=== PATIENT | male | born 1965 | race Caucasian/White ===

== ENCOUNTER 2017-11-07 20:46 | Emergency (ER) | payer OTHER ==
[~2017-11-07] VITALS: Ht 167.6 cm; Wt 74.8 kg
--- NOTE | 2017-11-07 20:50 | NUR ---
"FOUND IN THE ALLEY; ADMITS TO TAKING METH". REFUSES TO ANSWER QUESTIONS, NO S/S OF TRAUMA NOTED, NAD NOTED, VSS, RESP EVEN AND UNLABORED, PT WAS PUT ON MONITOR, WAITING FOR MD WILLIS.
[2017-11-07 22:23] LABS: BASOPHILS # (AUTO) 0.1 /CMM (0.0-0.2); BASOPHILS % (AUTO) 0.7 % (0.0-2.0); EOSINOPHILS % (AUTO) 1.7 % (0.0-6.0); HEMATOCRIT 36 % (39-51); HEMOGLOBIN 12.1 g/dL (13.5-17.5); LYMPHOCYTES # (AUTO) 0.9 /CMM (0.8-4.8); LYMPHOCYTES % (AUTO) 11.2 % (20.0-44.0); MEAN CORPUSCULAR HGB CONC 34 g/dl (31.0-36.0); MEAN CORPUSCULAR VOLUME 79 fL (80-96); MONOCYTES # (AUTO) 0.6 /CMM (0.1-1.30); MONOCYTES % (AUTO) 7.5 % (2.0-12.0); NEUTROPHILS # (AUTO) 6.5 /CMM (1.8-8.9); NEUTROPHILS % (AUTO) 78.9 % (43.0-81.0); PLATELET COUNT (AUTO) 172 /CMM (150-450); RDW COEFFICIENT OF VARIATION 18.3 (11.5-15.0); RED BLOOD CELL COUNT(AUTO) 4.58 MIL/uL (4.5-6.0); WHITE BLOOD COUNT (AUTO) 8.3 K/uL (4.3-11.0)
[2017-11-07] MEDS ORDERED: LIDOCAINE 2% JEL UROJET 10 ML MM ONE (22:26)
[2017-11-07 22:37] LABS: CALCIUM, SERUM 8.5 mg/dL (8.5-10.1); CARBON DIOXIDE 28 mmol/L (21-32); CHLORIDE 103 mmol/L (98-107); CREATININE 0.7 mg/dL (0.6-1.3); GLUCOSE 301 mg/dL (74-106); POTASSIUM 3.9 mmol/L (3.5-5.1); SODIUM SERUM 136 mmol/L (136-145); UREA NITROGEN, BLOOD 22 mg/dL (7-18)
[2017-11-07 22:42] LABS: ALANINE AMINOTRANSFERASE 38 U/L (12-78); ALBUMIN 3.2 g/dL (3.4-5.0); ALCOHOL, BLOOD < 3 mg/dL (0-0); ALKALINE PHOSPHATASE 118 U/L (46-116); ASPARTATE AMINOTRANSFERASE 25 U/L (15-37); BILIRUBIN,DIRECT 0.2 mg/dL (0.0-0.2); BILIRUBIN,TOTAL 0.6 mg/dL (0.2-1.0); TOTAL PROTEIN, SERUM 7.5 g/dL (6.4-8.2)
[2017-11-07 22:43] LABS: ACETAMINOPHEN 0 ug/ml (10-30); SALICYLATE < 0.2 mg/dL (2.8-20.0)
[2017-11-07 23:07] LABS: APPEARANCE,URINE SL CLOUDY (CLEAR); BILIRUBIN,URINE NEGATIVE (NEGATIVE); BLOOD, URINE NEGATIVE Ery/uL (NEGATIVE); COLOR,URINE YELLOW (YELLOW); KETONES,URINE TRACE (NEGATIVE); LEUKOCYTE ESTERASE ,URINE NEGATIVE (NEGATIVE); NITRITE, URINE NEGATIVE (NEGATIVE); PROTEIN,URINE 2+ mg/dl (NEGATIVE); UGLUCOSE 2+ mg/dL (NEGATIVE)
[2017-11-07 23:13] LABS: WBC,URINE 21-50 /HPF (0-3)
[2017-11-07 23:14] LABS: BACTERIA,URINE Few /HPF (None Seen); MUCUS,URINE Few /LPF (None Seen); RBC,URINE 0-2 /HPF (0-2); SQUAMOUS EPITHELIAL CELL,UR Rare /HPF (None Seen)
--- NOTE | 2017-11-07 23:32 | NUR ---
REPORT REC'D FROM ДМИТРИЙ LOPEZ FOR KRISTA.
--- NOTE | 2017-11-07 23:34 | NUR ---
[employer] IS AT THE BEDSIDE. PT APPEARS TO BE RESTING COMFORTABLY. PT IS IN BILATERAL HANDCUFFS AND IS ON THE MONITOR AND CONTINUOUS PULSE OX.
[2017-11-08 00:32] VITALS: BP 132/74
[2018-02-01] MEDS ORDERED: METF-440 PO (09:51)
== END 2017-11-08 00:33 ==
LOC: ER 20:48
DX: Z13.89 Encounter for screening for other disorder (principal); F19.10 Other psychoactive substance abuse, uncomplicated; R46.89 Other symptoms and signs involving appearance and behavior; E11.9 Type 2 diabetes mellitus without complications; R82.79 Other abnormal findings on microbiological examination of urine
CPT/HCPCS: 36415; 80048-TC; 80076-TC; 80305; 81000-TC; 85025-TC; 87086-TC; A4606; G0480; J3490; Z7610

== ENCOUNTER 2018-01-31 13:20 | Emergency (ER) | payer MEDICAID, OTHER ==
[~2018-01-31] VITALS: Ht 167.6 cm; Wt 72.1 kg
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
[2018-01-31] MEDS ORDERED: TDAP [DIPH/PERTUSSIS/TET] 0.5 ML VIAL IM ONE (13:37)
[2018-01-31] MEDS: TDAP [DIPH/PERTUSSIS/TET] 0.5 ML VIAL IM ONE (13:40)
[2018-01-31 13:48] LABS: BASOPHILS % (AUTO) 0.7 % (0.0-2.0); EOSINOPHILS % (AUTO) 2.9 % (0.0-6.0); HEMATOCRIT 37 % (39-51); HEMOGLOBIN 11.7 g/dL (13.5-17.5); LYMPHOCYTES # (AUTO) 1.3 /CMM (0.8-4.8); LYMPHOCYTES % (AUTO) 20.6 % (20.0-44.0); MEAN CORPUSCULAR HEMOGLOBIN 25 PG (26.0-33.0); MEAN CORPUSCULAR HGB CONC 32 g/dl (31.0-36.0); MEAN CORPUSCULAR VOLUME 78 fL (80-96); MONOCYTES # (AUTO) 0.5 /CMM (0.1-1.30); MONOCYTES % (AUTO) 7.7 % (2.0-12.0); NEUTROPHILS # (AUTO) 4.4 /CMM (1.8-8.9); NEUTROPHILS % (AUTO) 68.1 % (43.0-81.0); PLATELET COUNT (AUTO) 175 /CMM (150-450); RDW COEFFICIENT OF VARIATION 15.2 (11.5-15.0); RED BLOOD CELL COUNT(AUTO) 4.69 MIL/uL (4.5-6.0); WHITE BLOOD COUNT (AUTO) 6.4 K/uL (4.3-11.0)
--- NOTE | 2018-01-31 13:51 | NUR ---
pt to ctscan
[2018-01-31 13:57] LABS: CALCIUM, SERUM 8.8 mg/dL (8.5-10.1); POTASSIUM 3.8 mmol/L (3.5-5.1)
[2018-01-31] MEDS ORDERED: LIDOCAINE 1%-EPI 1:100,000 20 ML VIAL ONE ×2 (15:30→15:32)
[2018-01-31] MEDS: LIDOCAINE 1%-EPI 1:100,000 50 ML VIAL IJ ONE (15:34)
--- NOTE | 2018-01-31 15:49 | NUR ---
pt refused to continue with laceration care, tried to help clean up, but still refused.
[2018-01-31 16:21] VITALS: BP 123/78
--- NOTE | 2018-01-31 16:21 | NUR ---
Patient discharged to home in stable condition. Written and verbal after care instructions given. Patient verbalizes understanding of instruction.
[2018-02-01] MEDS ORDERED: LISI10TA5 PO (09:51)
[2018-02-01] MEDS ORDERED: METF500T6 PO (09:51)
[2018-02-01] MEDS ORDERED: OMEP20TA5 PO (09:51)
[2018-02-01] MEDS ORDERED: TRAM50TA2 PO (09:51)
[2018-02-01] MEDS ORDERED: GLIP5TAB13 PO (09:51)
[2018-02-01] MEDS ORDERED: PROP10TA10 PO (09:51)
== END 2018-01-31 16:22 | disposition home or self-care (01) ==
LOC: ER 13:23
DX: S06.0X9A Concussion with loss of consciousness of unspecified duration, initial encounter (principal); S01.01XA Laceration without foreign body of scalp, initial encounter; Z23 Encounter for immunization; Z60.2 Problems related to living alone; E11.9 Type 2 diabetes mellitus without complications; Y04.8XXA Assault by other bodily force, initial encounter; Y93.39 Activity, other involving climbing, rappelling and jumping off; Y92.410 Unspecified street and highway as the place of occurrence of the external cause; Y99.8 Other external cause status
CPT/HCPCS: 12001; 36415; 70450; 72125; 80048; 85025; 85730; 90471; 90715; 99285; A4606; A6402; A6403; J3490; L0172; Z7610

== ENCOUNTER 2018-01-31 18:43 | Inpatient (IN) | payer MEDICAID ==
[~2018-01-31] VITALS: Ht 180.3 cm; Wt 73.5 kg
[2018-01-31 19:11] LABS: BASOPHILS # (AUTO) 0.1 /CMM (0.0-0.2); HEMATOCRIT 36 % (39-51); HEMOGLOBIN 11.4 g/dL (13.5-17.5); LYMPHOCYTES # (AUTO) 1.2 /CMM (0.8-4.8); LYMPHOCYTES % (AUTO) 19.3 % (20.0-44.0); MEAN CORPUSCULAR HEMOGLOBIN 24 PG (26.0-33.0); MEAN CORPUSCULAR HGB CONC 31 g/dl (31.0-36.0); MEAN CORPUSCULAR VOLUME 77 fL (80-96); MONOCYTES # (AUTO) 0.5 /CMM (0.1-1.30); MONOCYTES % (AUTO) 8.1 % (2.0-12.0); NEUTROPHILS # (AUTO) 4.5 /CMM (1.8-8.9); NEUTROPHILS % (AUTO) 69.6 % (43.0-81.0); PLATELET COUNT (AUTO) 147 /CMM (150-450); RDW COEFFICIENT OF VARIATION 15.3 (11.5-15.0); WHITE BLOOD COUNT (AUTO) 6.4 K/uL (4.3-11.0)
[2018-01-31 19:17] LABS: CALCIUM, SERUM 8.4 mg/dL (8.5-10.1); CARBON DIOXIDE 29 mmol/L (21-32); CHLORIDE 108 mmol/L (98-107); CREATININE 0.9 mg/dL (0.6-1.3); GLUCOSE 141 mg/dL (74-106); POTASSIUM 3.9 mmol/L (3.5-5.1); SODIUM SERUM 140 mmol/L (136-145); UREA NITROGEN, BLOOD 15 mg/dL (7-18)
[2018-01-31 19:22] LABS: ALANINE AMINOTRANSFERASE 33 U/L (12-78); ALBUMIN 3.4 g/dL (3.4-5.0); ALKALINE PHOSPHATASE 109 U/L (46-116); ASPARTATE AMINOTRANSFERASE 27 U/L (15-37); BILIRUBIN,DIRECT 0.2 mg/dL (0.0-0.2); BILIRUBIN,TOTAL 0.8 mg/dL (0.2-1.0); TOTAL PROTEIN, SERUM 7.7 g/dL (6.4-8.2)
[2018-01-31 19:23] LABS: ACETAMINOPHEN < 2 ug/ml (10-30); ALCOHOL, BLOOD < 3 mg/dL (0-0); SALICYLATE < 2.8 mg/dL (2.8-20.0)
--- NOTE | 2018-01-31 21:29 | NUR ---
ASSUMED CARE OF PT AT THIS TIME. PT RESTING IN BED WITH NO S/S OF DISTRESS NOTED. PT GCS OF 10. PT MUMBLES AND MOVES HEAD WHEN ASKED QUESTIONS.WILL CONTINUE TO MONITOR PT.
[2018-01-31 21:55] VITALS: BP 124/61
--- NOTE | 2018-01-31 22:19 | NUR ---
REPORT GIVEN TO WELT TRIMMING MACHINE OPERATORДМИТРИЙ PARKS FOR KRISTA.
--- NOTE | 2018-01-31 22:45 | NUR ---
DISHROOM ATTENDANTCUSTOMER SERVICE REPRESENTATIVE NOTES Patient arrived to unit via gurney. Patient asleep. Just mumbles a few words when called by name and goes back to sleep. Most of the time, patient does not answer at all. As per ER nurse, "patient has been playing ". Patient's V/S WNL. On tele monitor, SR66. Not in any distress. Breathing even and unlabored. Patient has a lot of dried blood on head. Cleaned it as much as I can with NS, patient very uncooperative. Cleaned the patient and changed him into a hospital gown. Diaper in place. Pictures of abrasions on body taken and put in chart. MRSA swab done. Will monitor accordingly.
[2018-01-31] MEDS ORDERED: MAG HYDROX/AL HYDROX/SIMETH 30 ML UDC PO PRN (23:30)
[2018-01-31] MEDS ORDERED: DEXTROSE 50%-WATER 50 ML DISP.SYRIN IV PRN (23:30)
[2018-01-31] MEDS ORDERED: MAGNESIUM HYDROXIDE 30 ML UDC PO PRN (23:30)
[2018-01-31] MEDS ORDERED: LORAZEPAM INJ 2 MG/ML VIAL IV PRN (23:30)
[2018-01-31] MEDS ORDERED: ZOLPIDEM TARTRATE 5 MG TABLET PO PRN (23:30)
[2018-01-31] MEDS ORDERED: HYDROCODONE/APAP 5/325MG 1 EACH TABLET PO PRN (23:30)
[2018-01-31] MEDS ORDERED: ACETAMINOPHEN 325 MG TABLET PO PRN (23:30)
[2018-01-31] MEDS ORDERED: Z GUARD REMEDY 2 OZ OINT TP PRN (23:30)
[2018-01-31] MEDS ORDERED: ONDANSETRON HCL/PF 4 MG/2 ML VIAL IVP PRN (23:30)
[2018-02-01] VITALS: BP 139/66
[2018-02-01] MEDS ORDERED: ENOXAPARIN SODIUM 40 MG/0.4 ML DISP.SYRIN SQ SCH ×3 (01:00→01:30)
[2018-02-01 04:00] VITALS: BP 134/77
[2018-02-01 04:32] VITALS: BP 134/77
--- NOTE | 2018-02-01 05:11 | NUR ---
PIGMENT PROCESSOR NOTES Patient woke up. Asked for food and water. [place] and water given. Patient has strong gag reflex. No signs of aspiration. Attempted to talk to the patient but after eating, he went back to sleep.
[2018-02-01] MEDS: BLOOD SUGAR DIAGNOSTIC 1 EACH STRIP IN SCH ×4 (06:31→21:31)
[2018-02-01] MEDS: INSULIN REGULAR, HUMAN 100 UNIT/ML 3 ML VIAL SQ PRN ×3 (06:42→21:32)
--- NOTE | 2018-02-01 06:52 | NUR ---
TRIM MECHANIC CLOSING NOTES Patient still asleep in bed. Responds to verbal stimuli with eyes closed. Not in any distress. Tele monitor in place, SR 88. Safety precautions in place. Call beaulieu within reach. Bed in low locked position. All needs attended to. Will endorse KRISTA to morning shift RN
--- NOTE | 2018-02-01 07:30 | NUR ---
PT RECEIVED RESTING COMFORTABLY IN BED WITH EYES CLOSED. NO S/S OR C/O PAIN OR DISTRESS NOTED. SIDE RAILS UP X2, CALL LIGHT LEFT WITHIN REACH. WILL CONTINUE PLAN OF CARE.
[2018-02-01 07:52] LABS: BASOPHILS # (AUTO) 0.1 /CMM (0.0-0.2); BASOPHILS % (AUTO) 0.9 % (0.0-2.0); EOSINOPHILS % (AUTO) 2.9 % (0.0-6.0); HEMATOCRIT 36 % (39-51); HEMOGLOBIN 11.6 g/dL (13.5-17.5); LYMPHOCYTES # (AUTO) 1.1 /CMM (0.8-4.8); LYMPHOCYTES % (AUTO) 18.7 % (20.0-44.0); MEAN CORPUSCULAR HEMOGLOBIN 26 PG (26.0-33.0); MEAN CORPUSCULAR HGB CONC 33 g/dl (31.0-36.0); MEAN CORPUSCULAR VOLUME 81 fL (80-96); MONOCYTES # (AUTO) 0.3 /CMM (0.1-1.30); MONOCYTES % (AUTO) 6.1 % (2.0-12.0); NEUTROPHILS % (AUTO) 71.4 % (43.0-81.0); PLATELET COUNT (AUTO) 141 /CMM (150-450); RDW COEFFICIENT OF VARIATION 16.6 (11.5-15.0); RED BLOOD CELL COUNT(AUTO) 4.42 MIL/uL (4.5-6.0); WHITE BLOOD COUNT (AUTO) 5.6 K/uL (4.3-11.0)
[2018-02-01 08:00] VITALS: BP 121/71
[2018-02-01 08:03] LABS: CALCIUM, SERUM 8.1 mg/dL (8.5-10.1); CREATININE 0.9 mg/dL (0.6-1.3); MAGNESIUM 2.3 mg/dL (1.8-2.4); PHOSPHORUS 2.5 mg/dL (2.5-4.9); POTASSIUM 3.6 mmol/L (3.5-5.1)
[2018-02-01 08:07] LABS: INR 1.04 (0.87-1.13)
[2018-02-01 08:12] LABS: THYROID STIMULATING HORMONE 0.332 uIU/mL (0.358-3.74)
[2018-02-01] MEDS: PANTOPRAZOLE 40 MG TABLET.DR PO SCH (09:06)
[2018-02-01] MEDS ORDERED: OMEP20TA5 PO (09:51)
[2018-02-01] MEDS ORDERED: METF500T6 PO (09:51)
[2018-02-01] MEDS ORDERED: GLIP5TAB13 PO (09:51)
[2018-02-01] MEDS ORDERED: LISI10TA5 PO (09:51)
[2018-02-01] MEDS ORDERED: TRAM50TA2 PO (09:51)
[2018-02-01] MEDS ORDERED: PROP10TA10 PO (09:51)
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
[2018-02-01 12:22] LABS: ABG BASE EXCESS 1.7 mmol/L; ABG OXYGEN SATURATION 87.5 % (92.0-98.5); ABG PCO2 32.8 mmHg (35.0-45.0); ABG PH 7.492 (7.350-7.450); ABG PO2 52.7 mmHg (75.0-100.0); AaDO2 57.8 mmHg; COHb 1.3 % (0.5-1.5); MetHb 0.4 % (0.0-1.5); SITE, ABG Right Radial; VENT MODE, BG ROOM AIR
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
[2018-02-01] MEDS: THIAMINE HCL 100 MG TABLET PO SCH (12:34)
[2018-02-01] MEDS: FOLIC ACID 1 MG TABLET PO SCH (12:34)
[2018-02-01] MEDS: LACTULOSE 10 G/15 ML UDC (PYXIS) PO SCH ×3 (14:30→17:24)
[2018-02-01 16:00] VITALS: BP 115/71
[2018-02-01 16:07] LABS: APPEARANCE,URINE CLEAR (CLEAR); BILIRUBIN,URINE NEGATIVE (NEGATIVE); BLOOD, URINE NEGATIVE Ery/uL (NEGATIVE); COLOR,URINE DARK YELLO (YELLOW); KETONES,URINE NEGATIVE (NEGATIVE); LEUKOCYTE ESTERASE ,URINE NEGATIVE (NEGATIVE); NITRITE, URINE NEGATIVE (NEGATIVE); PROTEIN,URINE NEGATIVE (NEGATIVE); UGLUCOSE 1+ mg/dL (NEGATIVE)
[2018-02-01 16:24] LABS: WBC,URINE 0-2 /HPF (0-3)
[2018-02-01 16:25] LABS: RBC,URINE 0-2 /HPF (0-2); SQUAMOUS EPITHELIAL CELL,UR Few /HPF (None Seen)
[2018-02-01 16:26] LABS: BACTERIA,URINE Few /HPF (None Seen)
--- NOTE | 2018-02-01 18:15 | NUR ---
CHANGE OF SHIFT REPORT PT RESTING COMFORTABLY IN BED. NO S/S OR C/O PAIN OR DISTRESS NOTED. SIDE RAILS UP X2, CALL LIGHT LEFT WITHIN REACH. PT KEPT CLEAN, DRY, AND COMFORTABLE. NO SIGNIFICANT CHANGES SINCE PREVIOUS SHIFT. WILL GIVE REPORT TO MAGNUS CHOE.
--- NOTE | 2018-02-01 19:00 | NUR ---
MS RN OPENING NOTE Patient was see dozing in bed but awoke easily to name. He is AAOx3, breathing on 2L O2 NC with no SOB, and no signs of acute distress. SL 18g IV in the right AC is intact and patent. Small lacerations noted on the patient's head are clean, dry, wound edges well-approximated, no drainage or signs of infection, left open to air. Bed is low/locked, two side rails up, and call beaulieu within reach. Patient's only request is a sandwich and juice, which will be provided (pt on regular diet). Will continue to monitor.
[2018-02-01 20:00] VITALS: BP 135/85
--- NOTE | 2018-02-01 21:33 | NUR ---
MS RN NOTE - Refused Insulin Patient's blood sugar is 219. Patient has regular insulin scheduled prn using sliding scale. Patient refused to receive insulin, stating that he normally takes oral medications for blood glucose control (metformin and glipizide). These medications were added to the med recon list today, but they are still pending confirmation from the physician. I provided education to the patient regarding risks of high blood sugar and the benefit of using insulin temporarily to reduce his blood glucose levels. Patient still refused.
[2018-02-02] MEDS: BLOOD SUGAR DIAGNOSTIC 1 EACH STRIP IN SCH ×2 (06:30→12:01)
[2018-02-02 06:31] LABS: BASOPHILS % (AUTO) 0.6 % (0.0-2.0); HEMATOCRIT 37 % (39-51); HEMOGLOBIN 11.8 g/dL (13.5-17.5); LYMPHOCYTES # (AUTO) 1.2 /CMM (0.8-4.8); LYMPHOCYTES % (AUTO) 22.6 % (20.0-44.0); MEAN CORPUSCULAR HEMOGLOBIN 26 PG (26.0-33.0); MEAN CORPUSCULAR HGB CONC 32 g/dl (31.0-36.0); MEAN CORPUSCULAR VOLUME 80 fL (80-96); MONOCYTES # (AUTO) 0.5 /CMM (0.1-1.30); MONOCYTES % (AUTO) 8.6 % (2.0-12.0); NEUTROPHILS # (AUTO) 3.4 /CMM (1.8-8.9); NEUTROPHILS % (AUTO) 64.2 % (43.0-81.0); PLATELET COUNT (AUTO) 150 /CMM (150-450); RDW COEFFICIENT OF VARIATION 16.3 (11.5-15.0); RED BLOOD CELL COUNT(AUTO) 4.56 MIL/uL (4.5-6.0); WHITE BLOOD COUNT (AUTO) 5.3 K/uL (4.3-11.0)
[2018-02-02] MEDS: INSULIN REGULAR, HUMAN 100 UNIT/ML 3 ML VIAL SQ PRN (06:31)
[2018-02-02 06:34] LABS: CALCIUM, SERUM 7.9 mg/dL (8.5-10.1); CREATININE 0.7 mg/dL (0.6-1.3); POTASSIUM 3.9 mmol/L (3.5-5.1)
--- NOTE | 2018-02-02 06:48 | NUR ---
MS RN CLOSING NOTE Patient was seen sleeping in bed but awoke to name. He is AOx3, breathing on RA with no SOB, and no signs of acute distress. SL 18g IV in the right AC is intact and patent. Patient slept well overnight with no complaints and remains in stable condition. Bed is low/locked, two side rails up, and call beaulieu within reach. Patient care endorsed to day shift nurse.
--- NOTE | 2018-02-02 07:41 | NUR ---
MS RN OPENING NOTES RECEIVED PT LAYING IN BED, SLEEPING COMFORTABLE. PT IS AROUSABLE BUT STATES HE "IS VERY SLEEPY." PT IS A/OX3, AFEBRILE. RESPIRATIONS ARE EVEN AND UNLABORED, NOT IN ANY ACUTE DISTRESS NOTED. PT STATES HE WANTED TO BE LEFT ALONE AND TO COME BACK LATER. SAFETY MEASURES ARE IN PLACE. INSTRUCTED PT TO USE CALL LIGHT WHEN ASSISTANCE IS NEEDED, CALL LIGHT IS LEFT WITHIN REACH.
[2018-02-02 08:00] VITALS: BP 109/66
[2018-02-02] MEDS: LACTULOSE 10 G/15 ML UDC (PYXIS) PO SCH ×2 (08:13→12:02)
[2018-02-02] MEDS: PANTOPRAZOLE 40 MG TABLET.DR PO SCH (08:13)
[2018-02-02] MEDS: FOLIC ACID 1 MG TABLET PO SCH (08:13)
[2018-02-02] MEDS: THIAMINE HCL 100 MG TABLET PO SCH (08:13)
[2018-02-02 09:28] LABS: ABG BASE EXCESS -0.7 mmol/L; ABG OXYGEN SATURATION 95.9 % (92.0-98.5); ABG PCO2 41.9 mmHg (35.0-45.0); ABG PH 7.383 (7.350-7.450); ABG PO2 87.1 mmHg (75.0-100.0); AaDO2 12.5 mmHg; COHb 0.3 % (0.5-1.5); MetHb 0.8 % (0.0-1.5); O2Hb 94.8 % (94.0-97.0); SITE, ABG Left Radial; VENT MODE, BG ROOM AIR
[2018-02-02] MEDS ORDERED: LACT10SO PO (12:01)
--- NOTE | 2018-02-02 12:16 | NUR ---
MS RN NOTES BLOOD SUGAR IS 185. PT REFUSES INSULIN. PT SHOWS NO S/SX OF HYPO/HYPERGLYCEMIA NOTED. WILL CONTINUE TO MONITOR. GOT THE 'OK' FOR PATIENT TO SHOWER PRIOR TO DISCHARGE.
--- NOTE | 2018-02-02 12:17 | NUR ---
MS RN NOTES PT STATED HE WANTS RESOURCES FOR HOMELESS SENIOR LIVING. NOTIFIED CYRUS FROM [employer] AND STATED SHE WILL COME TO SEE THE PATIENT.
--- NOTE | 2018-02-02 13:46 | NUR ---
LALITHA met with pt. bedside. Pt. informed LALITHA that he is receiving homeless services through [facility] located at [address] [place] [address] in [facility]. . SW offered homeless custodial placement, however pt. declined stating he doesn't want to go to [facility]. Pt. states, he will go to [facility]. Pt. will require funds for the bus. LALITHA gave pt. homeless custodial resources and food resources along with [employer]. Homeless Patient Waiver form was signed by the pt and placed in the chart. LALITHA updated ДМИТРИЙ Ortiz and med Surg CRJuan Kitchen regarding pt's discharge plan.
--- NOTE | 2018-02-02 14:00 | NUR ---
MS MEDICAL TERMINOLOGIST NOTE PT DISCHARGED TO [facility] IN STABLE CONDITION. PT IS A/O X3-4, AFEBRILE, RESPIRATIONS ARE EVEN AND UNLABORED, NOT IN ANY ACUTE DISTRESS NOTED. PT DENIES ANY PAIN AT THIS TIME, NO C/O SOB, N/V NOTED. PUPILS ARE REACTIVE TO LIGHT, BILATERAL HAND CABIN SERVICE AGENT ARE STRONG AND EQUAL. PT DENIES ANY HEADACHE AND DIZZINESS. ABDOMEN IS SOFT AND NONDISTENDED. DENIES ANY BLADDER DISCOMFORT. IV SITE REMOVED, APPLIED PRESSURE AND TOLERATED WELL. ID BAND REMOVED. PT ABLE TO SHOWER AND CHANGE TO STREET CLOTHES. PHOTOS TAKEN AND PLACED IN CHART. MORE THAN HALF OF PT'S BELONGINGS ARE MISSING. PT STATED HE "CANT WAIT AND WANTS TO LEAVE NOW." INFORMED PT TO GIVE US A CALL WHEN HE ARRIVED AT [facility] HE FORGOT HIS OWN PHONE NUMBER TO PROVIDE FOR US TO CALL. PT STATED "OKAY I WILL CALL." PT LEFT IN STABLE CONDITION.
--- NOTE | 2018-02-02 14:30 | NUR ---
BELONGINGS-- PT BELONGINGS FOUND IN ROOM OF NURSES STATION. CALLED [facility] AND STATED THE "PATIENT HAS NOT CHECKED IN YET." WILL CALL BACK.
--- NOTE | 2018-02-02 15:30 | NUR ---
CALLED [facility] [phone], LEFT MESSAGE FOR RITIKA DURAN IN INTAKE.
== END 2018-02-02 14:15 | disposition home or self-care (01) | DRG 279 ==
LOC: ER 18:45 → TELE 21:45 → MED 02-01 09:34
PROVIDERS: ADMIT Hospitalist; ATTEND Hospitalist
DX: K72.90 Hepatic failure, unspecified without coma (principal); J96.01 Acute respiratory failure with hypoxia; F07.81 Postconcussional syndrome; D50.9 Iron deficiency anemia, unspecified; I10 Essential (primary) hypertension; F15.10 Other stimulant abuse, uncomplicated; E11.9 Type 2 diabetes mellitus without complications; K74.60 Unspecified cirrhosis of liver; L80 Vitiligo; F17.210 Nicotine dependence, cigarettes, uncomplicated; Z59.0 Homelessness; D63.8 Anemia in other chronic diseases classified elsewhere; F10.21 Alcohol dependence, in remission; E05.90 Thyrotoxicosis, unspecified without thyrotoxic crisis or storm; Z86.19 Personal history of other infectious and parasitic diseases; S01.01XA Laceration without foreign body of scalp, initial encounter; Y08.89XA Assault by other specified means, initial encounter; Y93.9 Activity, unspecified; Y92.89 Other specified places as the place of occurrence of the external cause; Z91.14 Patient's other noncompliance with medication regimen
CPT/HCPCS: 36415; 36600; 70450-TC; 71046; 80048-TC; 80061-TC; 80076-TC; 80305; 81000-TC; 82140-TC; 82746; 82803-TC; 82962-TC; 83735-TC; 84100-TC; 84439-TC; 84443-TC; 85025-TC; 85730-TC; 87081-TC; 87086-TC; A4606; A6403; G0480; J1650; J1815; Z7610

== ENCOUNTER 2018-10-04 13:33 | Emergency (ER) | payer MEDICAID, OTHER ==
[~2018-10-04] VITALS: Ht 170.2 cm; Wt 60.8 kg
[~2018-10-04 13:33] MED LIST: GLIP5TAB13 PO; LACT10SO PO; LISI10TA5 PO; METF-440 PO; OMEP20TA5 PO; PROP10TA10 PO; TRAM50TA2 PO
--- NOTE | 2018-10-04 13:34 | NUR ---
PT BIB [employer] D/T HYPERGLYCEMIA, PT AAOX4, PT ON MONITOR, VSS, NAD NOTED, PENDING MD WILLIS
[2018-10-04] MEDS ORDERED: INSULIN REGULAR, HUMAN 100 UNIT/ML 10 ML VIAL SQ ONE (14:00)
[2018-10-04] MEDS ORDERED: IV NS 0.9% 1,000 ML BAG IV ONE (14:00)
[2018-10-04 14:03] LABS: BASOPHILS % (AUTO) 0.9 % (0.0-2.0); EOSINOPHILS % (AUTO) 3.1 % (0.0-6.0); HEMATOCRIT 41 % (39-51); HEMOGLOBIN 13.1 g/dL (13.5-17.5); LYMPHOCYTES % (AUTO) 21.7 % (20.0-44.0); MEAN CORPUSCULAR HGB CONC 32 g/dl (31.0-36.0); MEAN CORPUSCULAR VOLUME 81 fL (80-96); MONOCYTES # (AUTO) 0.5 /CMM (0.1-1.30); MONOCYTES % (AUTO) 11.8 % (2.0-12.0); NEUTROPHILS # (AUTO) 2.8 /CMM (1.8-8.9); NEUTROPHILS % (AUTO) 62.5 % (43.0-81.0); PLATELET COUNT (AUTO) 110 /CMM (150-450); RED BLOOD CELL COUNT(AUTO) 5.01 MIL/uL (4.5-6.0); WHITE BLOOD COUNT (AUTO) 4.5 K/uL (4.3-11.0)
[2018-10-04] MEDS ORDERED: INSULIN REGULAR, HUMAN 100 UNIT/ML 10 ML VIAL ONE (14:13)
[2018-10-04 14:17] LABS: ALBUMIN 3.4 g/dL (3.4-5.0); BILIRUBIN,DIRECT 0.2 mg/dL (0.0-0.2); BILIRUBIN,TOTAL 0.7 mg/dL (0.2-1.0); CALCIUM, SERUM 8.7 mg/dL (8.5-10.1); CREATININE 0.9 mg/dL (0.6-1.3); POTASSIUM 4.3 mmol/L (3.5-5.1); TOTAL PROTEIN, SERUM 8.3 g/dL (6.4-8.2)
[2018-10-04 15:11] LABS: APPEARANCE,URINE Clear (CLEAR); BILIRUBIN,URINE Negative (NEGATIVE); BLOOD, URINE Trace-intact Ery/uL (NEGATIVE); COLOR,URINE Yellow (YELLOW); KETONES,URINE Trace (NEGATIVE); LEUKOCYTE ESTERASE ,URINE Negative (NEGATIVE); NITRITE, URINE Negative (NEGATIVE); PH,URINE 5.5 (5.0-8.0); PROTEIN,URINE Negative (NEGATIVE); UGLUCOSE 500 MG/DL mg/dL (NEGATIVE); UROBILINOGEN,URINE 0.2 EU/dL (0.2)
[2018-10-04 15:19] LABS: BACTERIA,URINE Rare /HPF (None Seen); RBC,URINE 0-2 /HPF (0-2); SQUAMOUS EPITHELIAL CELL,UR Few /HPF (None Seen); WBC,URINE 0-2 /HPF (0-3)
--- NOTE | 2018-10-04 16:48 | NUR ---
PT IS MEDICALLY CLEARED FOR BOOKING; PT WITH [employer]. PT LEFT IN STABLE CONDITION, VSS, NAD NOTED. PT AMBULATORY WITH STEADY GAIT
[2018-10-04 16:52] VITALS: BP 129/85
== END 2018-10-04 17:27 ==
LOC: ER 13:33
DX: F15.10 Other stimulant abuse, uncomplicated (principal); E11.65 Type 2 diabetes mellitus with hyperglycemia; E86.0 Dehydration; R10.84 Generalized abdominal pain; D69.6 Thrombocytopenia, unspecified; N28.1 Cyst of kidney, acquired; I10 Essential (primary) hypertension; Z60.2 Problems related to living alone; Z79.899 Other long term (current) drug therapy; Z79.84 Long term (current) use of oral hypoglycemic drugs
CPT/HCPCS: 36415; 71045; 76700; 80048; 80076; 81001; 82962 ×2; 85025; 93005; 96360; 96372; 99284; J1815; J7030; 81000-TC

== ENCOUNTER 2018-12-20 14:20 | Emergency (ER) | payer MEDICAID, OTHER ==
[~2018-12-20] VITALS: Ht 167.6 cm; Wt 79.4 kg
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
[2018-12-20] MEDS ORDERED: ONDANSETRON HCL/PF 4 MG/2 ML VIAL IVP ONE (15:00)
[2018-12-20] MEDS ORDERED: MORPHINE SULFATE INJ 2 MG/ML DISP.SYRIN IV ONE (15:00)
[2018-12-20] MEDS ORDERED: IV NS 0.9% 1,000 ML BAG IV ONE ×2 (15:00→18:00)
[2018-12-20] MEDS ORDERED: HYDROGEL DRESSING 90 GM TUBE TP PRN (15:00)
[2018-12-20 15:09] LABS: BASOPHILS # (AUTO) 0.1 /CMM (0.0-0.2); BASOPHILS % (AUTO) 0.9 % (0.0-2.0); EOSINOPHILS % (AUTO) 0.9 % (0.0-6.0); HEMATOCRIT 36 % (39-51); HEMOGLOBIN 12.1 g/dL (13.5-17.5); LYMPHOCYTES % (AUTO) 10.6 % (20.0-44.0); MEAN CORPUSCULAR HGB CONC 34 g/dl (31.0-36.0); MEAN CORPUSCULAR VOLUME 86 fL (80-96); MONOCYTES # (AUTO) 1.4 /CMM (0.1-1.30); MONOCYTES % (AUTO) 14.5 % (2.0-12.0); NEUTROPHILS # (AUTO) 7.1 /CMM (1.8-8.9); NEUTROPHILS % (AUTO) 73.1 % (43.0-81.0); PLATELET COUNT (AUTO) 139 /CMM (150-450); RED BLOOD CELL COUNT(AUTO) 4.19 MIL/uL (4.5-6.0); WHITE BLOOD COUNT (AUTO) 9.7 K/uL (4.3-11.0)
[2018-12-20 15:17] LABS: CALCIUM, SERUM 7.7 mg/dL (8.5-10.1); CREATININE 0.8 mg/dL (0.6-1.3)
[2018-12-20] MEDS ORDERED: MORPHINE SULFATE INJ 4 MG/ML DISP.SYRIN ONE (15:17)
[2018-12-20] MEDS ORDERED: ONDANSETRON HCL/PF 4 MG/2 ML VIAL ONE (15:17)
--- NOTE | 2018-12-20 15:40 | NUR ---
CALLED [facility] @[phone] TO PRESENT CASE SPOKE WITH STAN. HE WILL CALL US BACK WITH AN UPDATE.
--- NOTE | 2018-12-20 16:34 | NUR ---
CALLED [facility] SPOKE WITH JACOB TO PRESENT CASE. PER JACOB THEY ARE COMPLETLY FULL. FACESHEET WAS FAXED IN CASE ANYTHING OPENS UP.
[2018-12-20 16:50] LABS: APPEARANCE,URINE Slightly Cloudy (CLEAR); BILIRUBIN,URINE Negative (NEGATIVE); BLOOD, URINE Trace-intact Ery/uL (NEGATIVE); COLOR,URINE Yellow (YELLOW); KETONES,URINE Trace (NEGATIVE); LEUKOCYTE ESTERASE ,URINE Negative (NEGATIVE); NITRITE, URINE Negative (NEGATIVE); PH,URINE 6.5 (5.0-8.0); PROTEIN,URINE 30 mg/dl (NEGATIVE); UGLUCOSE >=1000 mg/dL (NEGATIVE); UROBILINOGEN,URINE >=8.0 EU/dL (0.2)
[2018-12-20 16:58] LABS: BACTERIA,URINE Few /HPF (None Seen); SQUAMOUS EPITHELIAL CELL,UR Few /HPF (None Seen)
[2018-12-20 16:59] LABS: WBC,URINE 0-2 /HPF (0-3)
[2018-12-20 17:58] LABS: BILIRUBIN,DIRECT 0.3 mg/dL (0.0-0.2); BILIRUBIN,TOTAL 0.8 mg/dL (0.2-1.0)
[2018-12-20] MEDS ORDERED: PIPERACILLIN /TAZOBACTAM 3.375 G in IV D5W 50 ML IV ONE (18:00)
[2018-12-20] MEDS ORDERED: VANCOMYCIN 1 GM in IV D5W 250 ML IV ONE (18:00)
--- NOTE | 2018-12-20 19:04 | NUR ---
EARLENE FROM [facility] CALLED, SHE STATED THEY ARE FULL AND CANT ACCEPT THE PATIENT AT THIS TIME.
--- NOTE | 2018-12-20 19:57 | NUR ---
GAHDA FROM [facility] CALLED. STATES HE'S STILL TRYING TO FIND PLACEMENT AND WILL CALL BACK
[2018-12-20 21:16] VITALS: BP 119/81
== END 2018-12-20 21:17 | disposition home or self-care (01) ==
LOC: ER 14:27
DX: T21.23XA Burn of second degree of upper back, initial encounter (principal); A41.9 Sepsis, unspecified organism; R65.20 Severe sepsis without septic shock; N47.2 Paraphimosis; E11.65 Type 2 diabetes mellitus with hyperglycemia; N48.29 Other inflammatory disorders of penis; I10 Essential (primary) hypertension; R00.0 Tachycardia, unspecified; L80 Vitiligo; Z86.19 Personal history of other infectious and parasitic diseases; Z60.2 Problems related to living alone; X19.XXXA Contact with other heat and hot substances, initial encounter; Y93.89 Activity, other specified; Y92.89 Other specified places as the place of occurrence of the external cause; Y99.8 Other external cause status
CPT/HCPCS: 36415; 80048; 81001; 82247; 82248; 83605 ×2; 85025; 87040 ×2; 87081; 96361; 96365; 96368; 96375; 99283; A6248; J2270; J2405; J2543; J3370; J7060 ×2; 81000-TC

== ENCOUNTER 2020-02-15 12:53 | Inpatient (IN) | payer OTHER ==
[~2020-02-15] VITALS: Ht 165.1 cm; Wt 59.9 kg
--- NOTE | 2020-02-15 13:02 | NUR ---
pt abdullahi from [facility] to er bed 14 c/o diffuse abdominal pain w/ nausea and vomiting, iv line was started and patient was given 500ml ns and zofran 4mg iv. gowned, stable vitals. awaiting md enciso.
--- NOTE | 2020-02-15 13:03 | NUR ---
dr montgomery at bedside for eval.
[2020-02-15 13:23] LABS: BILIRUBIN,URINE Negative (NEGATIVE); BLOOD, URINE Trace-intact Ery/uL (NEGATIVE); COLOR,URINE Yellow (YELLOW); KETONES,URINE 15 (NEGATIVE); LEUKOCYTE ESTERASE ,URINE Negative (NEGATIVE); NITRITE, URINE Negative (NEGATIVE); PROTEIN,URINE Negative (NEGATIVE); UGLUCOSE >=1000 mg/dL (NEGATIVE); UROBILINOGEN,URINE 0.2 EU/dL (0.2)
[2020-02-15 13:26] LABS: APPEARANCE,URINE SLIGHTLY HAZY (CLEAR)
[2020-02-15] MEDS ORDERED: KETOROLAC TROMETHAMINE INJ 30 MG/ML VIAL ONE (13:26)
[2020-02-15] MEDS ORDERED: KETOROLAC TROMETHAMINE INJ 60 MG/2 ML VIAL IM ONE (13:30)
[2020-02-15] MEDS ORDERED: IV NS 0.9% 1,000 ML BAG IV ONE (13:30)
--- NOTE | 2020-02-15 13:30 | NUR ---
blood drawn. sent to lab.
[2020-02-15 13:31] LABS: BACTERIA,URINE Moderate /HPF (None Seen); SQUAMOUS EPITHELIAL CELL,UR Few /HPF (None Seen)
--- NOTE | 2020-02-15 13:36 | NUR ---
refusing ct abdomen at this time. ermd aware.
[2020-02-15 13:50] LABS: BASOPHILS % (AUTO) 0.5 % (0.0-2.0); EOSINOPHILS % (AUTO) 0.9 % (0.0-6.0); HEMATOCRIT 39 % (39-51); HEMOGLOBIN 11.9 g/dL (13.5-17.5); LYMPHOCYTES # (AUTO) 0.5 /CMM (0.8-4.8); LYMPHOCYTES % (AUTO) 8.2 % (20.0-44.0); MEAN CORPUSCULAR HGB CONC 31 g/dl (31.0-36.0); MEAN CORPUSCULAR VOLUME 77 fL (80-96); MONOCYTES # (AUTO) 0.3 /CMM (0.1-1.30); MONOCYTES % (AUTO) 5.1 % (2.0-12.0); NEUTROPHILS # (AUTO) 5.6 /CMM (1.8-8.9); NEUTROPHILS % (AUTO) 85.3 % (43.0-81.0); PLATELET COUNT (AUTO) 140 /CMM (150-450); RED BLOOD CELL COUNT(AUTO) 5.01 MIL/uL (4.5-6.0); WHITE BLOOD COUNT (AUTO) 6.5 K/uL (4.3-11.0)
--- NOTE | 2020-02-15 13:50 | NUR ---
pt to radiology for abdominal ct scan via [facility] [place].
[2020-02-15 14:04] LABS: ALBUMIN 3.5 g/dL (3.4-5.0); BILIRUBIN,DIRECT 0.4 mg/dL (0.0-0.2); BILIRUBIN,TOTAL 1.4 mg/dL (0.2-1.0); CALCIUM, SERUM 8.8 mg/dL (8.5-10.1); CREATININE 1.1 mg/dL (0.6-1.3); POTASSIUM 3.8 mmol/L (3.5-5.1)
--- NOTE | 2020-02-15 15:16 | NUR ---
accucheck 492. dr syed made aware.
--- NOTE | 2020-02-15 16:27 | NUR ---
MOVE SHEET SUBMITTED AND CALLED FOR MS BED.
--- NOTE | 2020-02-15 17:13 | NUR ---
Raúl tierney in [facility] - 02/15/20 at 1807 by ALEXANDR RAPID COVID TEST DONE AND SENT TO LAB
--- NOTE | 2020-02-15 17:58 | NUR ---
called to give report. was ask to call in 15 mins. assigned nurse is busy.
--- NOTE | 2020-02-15 18:13 | NUR ---
[facility] paged. awaiting for hospitalist call back.
--- NOTE | 2020-02-15 18:26 | NUR ---
report given to vaishali hager. pt awaiting transfer to floor.
[2020-02-15] MEDS ORDERED: INSULIN REGULAR, HUMAN 100 UNIT/ML 10 ML VIAL IV ONE (18:30)
[2020-02-15] MEDS ORDERED: METRONIDAZOLE 500MG/ NS 100ML 500 MG in PREMIX 1 EA IV SCH (18:30)
[2020-02-15] MEDS ORDERED: DEXTROSE 50%-WATER 50 ML DISP.SYRIN IV PRN (18:30)
[2020-02-15] MEDS ORDERED: CEFTRIAXONE 1GM BAG (ER ONLY) 1 GM/50 ML PIGGYBACK IV ONE (18:30)
[2020-02-15] MEDS ORDERED: CEFTRIAXONE 1GM BAG (ER ONLY) 50 ML IV ONE (18:35)
[2020-02-15] MEDS ORDERED: INSULIN REGULAR, HUMAN 100 UNIT/ML 10 ML VIAL ONE (18:36)
[2020-02-15] MEDS ORDERED: VANCOMYCIN 1 GM in IV D5W 250 ML IV ONE (19:00)
[2020-02-15] MEDS ORDERED: ACETAMINOPHEN 325 MG TABLET PO PRN (19:00)
[2020-02-15] MEDS ORDERED: ONDANSETRON HCL/PF 4 MG/2 ML VIAL IVP PRN (19:00)
[2020-02-15] MEDS ORDERED: MAG HYDROX/AL HYDROX/SIMETH 30 ML UDC PO PRN (19:00)
[2020-02-15] MEDS ORDERED: MAGNESIUM HYDROXIDE 30 ML UDC PO PRN (19:00)
[2020-02-15] MEDS ORDERED: Z GUARD REMEDY 2 OZ OINT TP PRN (19:00)
[2020-02-15] MEDS ORDERED: HYDROCODONE/APAP 5/325MG TABLET PO PRN (19:00)
[2020-02-15] MEDS ORDERED: ZOLPIDEM TARTRATE 5 MG TABLET PO PRN (19:00)
--- NOTE | 2020-02-15 19:35 | NUR ---
"RN NOTE | ADMISSION RECEIVED PT FROM ER VIA [place] ACCOMPANIED BY 1 ER STAFF AND TRANSFERRED TO BED VIA 2 PERSON ASSIST. PT IS ALERT AND ORIENTED X3. PT ON ROOM AIR WITH RESPIRATIONS EVEN AND UNLABORED. PATIENT ON MED SURG STATUS WITH ADMITTING DIAGNOSIS OF HYPERGLYCEMIA AND PARTIAL SBO.COMPREHENSIVE PHYSICAL ASSESSMENT DONE. CALL LIGHT WITHIN REACH, SAFETY MEASURES IN PLACE, WILL CONTINUE MONITOR AND ASSESS THROUGHOUT THE SHIFT. WILL CARRY OUT MD ORDERS ACCORDINGLY."
--- NOTE | 2020-02-15 19:42 | NUR ---
PT TRANSFERRED TO MS BED VIA [facility] IN STABLE CONDITION
[2020-02-15 20:00] VITALS: BP 126/65
[2020-02-15] MEDS: IV NS 0.9% 1,000 ML IV PRN (20:29)
[2020-02-15] MEDS: BLOOD SUGAR DIAGNOSTIC 1 EACH STRIP IN SCH ×2 (21:00→21:23)
--- NOTE | 2020-02-15 21:05 | NUR ---
RN NOTES ACCU CHECK DONE; BLOOD SUGAR @270MG/DL. PT REFUSED INSULIN ADMINISTRATION; CLINICAL CARE MANAGER MADE AWARE.
[2020-02-15] MEDS: PANTOPRAZOLE 40 MG VIAL IV SCH (21:09)
[2020-02-15] MEDS: INSULIN REGULAR, HUMAN 100 UNIT/ML 3 ML VIAL SQ PRN (21:48)
[2020-02-15] MEDS: PIPERACILLIN /TAZOBACTAM 3.375 G in IV D5W 50 ML IV SCH (23:48)
[2020-02-16] MEDS: BLOOD SUGAR DIAGNOSTIC 1 EACH STRIP IN SCH ×6 (00:12→21:11)
[2020-02-16] MEDS: INSULIN REGULAR, HUMAN 100 UNIT/ML 3 ML VIAL SQ PRN ×5 (00:13→21:18)
--- NOTE | 2020-02-16 00:14 | NUR ---
RN NOTES ACCU CHECK DONE; BLOOD SUGAR @234MG/DL. PT REFUSED INSULIN ADMINISTRATION; REGISTERED SAFETY ENGINEER MADE AWARE.
[2020-02-16 04:00] VITALS: BP 125/68
[2020-02-16] MEDS: VANCOMYCIN 0.75 GM in IV D5W 250 ML IV SCH ×3 (05:01→19:59)
[2020-02-16 05:16] LABS: BASOPHILS # (AUTO) 0.1 /CMM (0.0-0.2); BASOPHILS % (AUTO) 0.6 % (0.0-2.0); EOSINOPHILS % (AUTO) 2.7 % (0.0-6.0); HEMATOCRIT 36 % (39-51); HEMOGLOBIN 11.5 g/dL (13.5-17.5); LYMPHOCYTES # (AUTO) 0.9 /CMM (0.8-4.8); LYMPHOCYTES % (AUTO) 9.9 % (20.0-44.0); MEAN CORPUSCULAR HGB CONC 32 g/dl (31.0-36.0); MEAN CORPUSCULAR VOLUME 75 fL (80-96); MONOCYTES # (AUTO) 0.5 /CMM (0.1-1.30); MONOCYTES % (AUTO) 5.8 % (2.0-12.0); PLATELET COUNT (AUTO) 115 /CMM (150-450); RED BLOOD CELL COUNT(AUTO) 4.82 MIL/uL (4.5-6.0); WHITE BLOOD COUNT (AUTO) 8.6 K/uL (4.3-11.0)
--- NOTE | 2020-02-16 05:16 | NUR ---
RN NOTES ACCU CHECK DONE; BLOOD SUGAR @217MG/DL (0500AM). PT REFUSED INSULIN ADMINISTRATION; GRAVITY PROSPECTING OPERATOR MADE AWARE.
[2020-02-16] MEDS: PIPERACILLIN /TAZOBACTAM 3.375 G in IV D5W 50 ML IV SCH ×3 (06:16→17:20)
[2020-02-16 06:27] LABS: ALBUMIN 2.7 g/dL (3.4-5.0); CALCIUM, SERUM 8.4 mg/dL (8.5-10.1); CREATININE 0.8 mg/dL (0.6-1.3); PHOSPHORUS 2.8 mg/dL (2.5-4.9); POTASSIUM 3.4 mmol/L (3.5-5.1); TOTAL PROTEIN, SERUM 7.4 g/dL (6.4-8.2)
--- NOTE | 2020-02-16 06:43 | NUR ---
TOOL DESIGN ENGINEER CLOSING NOTES PATIENT REMAINS IN ROOM IN NO SIGNS OF RESPIRATORY DISTRESS. PATIENT SATURATING 99%. VITAL SIGNS WNL. SAFETY PRECAUTIONS IN PLACE AND COMFORT MEASURES RENDERED. BED IN LOWEST POSITION, CALL LIGHT WITHIN REACH, BREAKS ON, SIDE RAILS UP. ALL NEEDS ATTENDED, MEDICATIONS GIVEN SCHEDULED AND ORDERED ; SHIFT ASSESSMENT/BEDBATH/SKIN CARE DONE. PATIENT KEPT CLEAN AND DRY. WILL ENDORSE TO INCOMING SHIFT FOR KRISTA.
[2020-02-16 08:00] VITALS: BP 131/74
--- NOTE | 2020-02-16 08:00 | NUR ---
RN NOTES PT SCREAMING OUT FOR FOOD , EMILIANO FLOAT BUILDER NOTIFED ,NEW ORDER RECEIVED TO START PT ON CLEAR DIET . CONTINUE TO MONITOR .
--- NOTE | 2020-02-16 08:45 | NUR ---
RN NOTES REPORT GIVEN TO QUENTIN COHE FOR CONTINUITY OF CARE
--- NOTE | 2020-02-16 08:45 | NUR ---
RN NOTES REPORT GIVEN TO QUENTIN CHOE FOR CONTINUITY OF CARE
--- NOTE | 2020-02-16 09:00 | NUR ---
RECEIVED REPORT BY WALDO CHOE.
[2020-02-16] MEDS ORDERED: POTASSIUM CHLORIDE 20 MEQ TAB.PRT.SR PO SCH (10:30)
[2020-02-16 10:40] LABS: THYROID STIMULATING HORMONE 0.399 uIU/mL (0.358-3.74)
[2020-02-16] MEDS: IV NS 0.9% 1,000 ML IV PRN (10:45)
--- NOTE | 2020-02-16 17:30 | NUR ---
Pt going transfer to 3W, given report Derrick CHOE.
--- NOTE | 2020-02-16 19:40 | NUR ---
MS RN OPENING NOTES RECEIVED TRANSFER REPORT FROM DAY SHIFT RN. PATIENT A/OX3; SLEEPING IN ROOM UPON ARRIVAL. NO S/S OF ACUTE RESPIRATORY DISTRESS; BREATHING IS EVEN AND UNLABORED. NO S/S OF PAIN NOTED. IV PRESENT ON RIGHT AC, SIZE 18, INTACT & PATENT, HEP LOCKED AT THIS TIME. SAFETY MEASURES IN PLACE AND PATIENT'S NEEDS MET. BED LOCKED, ALARM ON, SIDE RAILS X3, CALL LIGHT WITHIN REACH. WILL CONTINUE TO MONITOR.
[2020-02-16 20:00] VITALS: BP 114/79
[2020-02-16] MEDS: PANTOPRAZOLE 40 MG VIAL IV SCH (21:00)
[2020-02-16] MEDS ORDERED: METF-442 PO (21:29)
[2020-02-16] MEDS ORDERED: GLIP5TAB13 PO (21:29)
[2020-02-17] MEDS: PIPERACILLIN /TAZOBACTAM 3.375 G in IV D5W 50 ML IV SCH ×5 (00:23→23:09)
[2020-02-17] MEDS: BLOOD SUGAR DIAGNOSTIC 1 EACH STRIP IN SCH ×6 (00:34→20:53)
[2020-02-17] MEDS: INSULIN REGULAR, HUMAN 100 UNIT/ML 3 ML VIAL SQ PRN ×5 (00:35→20:53)
[2020-02-17] MEDS: IV NS 0.9% 1,000 ML IV PRN ×2 (02:19→17:19)
[2020-02-17] MEDS: VANCOMYCIN 0.75 GM in IV D5W 250 ML IV SCH ×3 (04:04→19:33)
--- NOTE | 2020-02-17 06:40 | NUR ---
MS RN CLOSING NOTES PATIENT SLEEPING. NO ADVERSE EVENTS DURING SHIFT. A/OX3. STABLE ON RA; NO S/S OF ACUTE RESPIRATORY DISTRESS; BREATHING IS EVEN AND UNLABORED. NO S/S OF PAIN NOTED. IV PRESENT ON RIGHT AC, SIZE 18, INTACT & PATENT, WITH NS RUNNING AT 90 ML/HR. SAFETY MEASURES IN PLACE AND PATIENT'S NEEDS MET. BED LOCKED, ALARM ON, SIDE RAILS X3, CALL LIGHT WITHIN REACH. WILL ENDORSE TO DAY SHIFT RN PLAN OF CARE.
[2020-02-17 07:12] LABS: BASOPHILS # (AUTO) 0.1 /CMM (0.0-0.2); EOSINOPHILS % (AUTO) 3.9 % (0.0-6.0); HEMATOCRIT 36 % (39-51); HEMOGLOBIN 11.5 g/dL (13.5-17.5); LYMPHOCYTES # (AUTO) 0.8 /CMM (0.8-4.8); LYMPHOCYTES % (AUTO) 13.9 % (20.0-44.0); MEAN CORPUSCULAR HGB CONC 32 g/dl (31.0-36.0); MEAN CORPUSCULAR VOLUME 75 fL (80-96); MONOCYTES # (AUTO) 0.4 /CMM (0.1-1.30); NEUTROPHILS # (AUTO) 4.4 /CMM (1.8-8.9); NEUTROPHILS % (AUTO) 75.2 % (43.0-81.0); PLATELET COUNT (AUTO) 122 /CMM (150-450); RED BLOOD CELL COUNT(AUTO) 4.84 MIL/uL (4.5-6.0); WHITE BLOOD COUNT (AUTO) 5.8 K/uL (4.3-11.0)
[2020-02-17 07:47] LABS: ALBUMIN 2.4 g/dL (3.4-5.0); BILIRUBIN,TOTAL 0.7 mg/dL (0.2-1.0); CALCIUM, SERUM 7.4 mg/dL (8.5-10.1); CREATININE 0.8 mg/dL (0.6-1.3); POTASSIUM 3.3 mmol/L (3.5-5.1); TOTAL PROTEIN, SERUM 6.9 g/dL (6.4-8.2)
--- NOTE | 2020-02-17 07:50 | NUR ---
MS RN OPENING NOTE PATIENT IN BED RESTING COMFORTABLY. PATIENT IN NO ACUTE DISTRESS. NO SOB NOTED. PATIENT BREATHING IS EVEN AND UNLABORED. PATIENT SAFETY PRECAUTIONS IN PLACE. BED ALARM IS ON. PATIENT BED IS LOCKED AND IN LOWEST POSITION. CALL LIGHT WITHIN REACH. WILL CONTINUE TO MONITOR.
[2020-02-17 08:03] LABS: IRON, SERUM 27 ug/dl (50-175); TOTAL IRON BINDING CAPACITY 244 ug/dl (250-450)
--- NOTE | 2020-02-17 08:14 | NUR ---
MS RN NOTE PATIENT REFUSING CT ABDOMEN WITHOUT CONTRAST THIS AM. PATIENT STATES I WANT TO EAT BEFORE DOING ANYTHING TODAY. EDUCATED RISKS VS BENEFITS. PATIENT REFUSED AT THIS TIME. PER RADIOLOGY WILL COME BACK AND TRY AGAIN THIS AFTERNOON.
[2020-02-17 08:16] VITALS: BP 115/71
[2020-02-17 09:01] LABS: FERRITIN 17 ng/mL (8-388)
--- NOTE | 2020-02-17 09:16 | NUR ---
MS RN NOTE PATIENT BLOOD SUGAR IS 194. PATIENT REFUSING REGULAR INSULIN PRN ORDERED PER SLIDING SCALE. PATIENT GETTING AGITATED WHEN REFUSING. EXPLAINED AND EDUCATED RISKS VS BENEFITS CALMLY. PATIENT CONTINUED TO REFUSE. Addendum: 02/17/20 at 1313 by LESLIE FAULKNER RN MS CHOE NOTE PATIENT BLOOD SUGAR IS 194. PATIENT REFUSING REGULAR INSULIN 3 UNITS PRN ORDERED PER SLIDING SCALE. PATIENT GETTING AGITATED WHEN REFUSING. EXPLAINED AND EDUCATED RISKS VS BENEFITS CALMLY. PATIENT CONTINUED TO REFUSE.
--- NOTE | 2020-02-17 09:25 | NUR ---
MS RN NOTE PER RAFAEL FROM XRAY PATIENT OKAY TO GO TO CT ABDOMEN WITHOUT CONTRAST. PER RAFAEL CT METAL DRAWER SAID IS OKAY IF PATIENT ATE A LITTLE BIT FROM HIS CLEAR LIQUID DIET. PATIENT AGREED TO CT. PATIENT WILL ONLY DO IT IF IT DOES NOT INTERFERE WITH HIS LUNCH. RAFAEL WILL BRING PATIENT TO CT ABDOMEN WITHOUT CONTRAST.
--- NOTE | 2020-02-17 09:50 | NUR ---
MS RN NOTE PATIENT FINISHED CT ABDOMEN WITHOUT CONTRAST AND TOLERATED WELL. PATIENT IN NO ACUTE DISTRESS. WILL CONTINUE TO MONITOR.
[2020-02-17] MEDS ORDERED: POTASSIUM CHLORIDE 20 MEQ POWDER PACKET PO SCH (11:00)
--- NOTE | 2020-02-17 13:12 | NUR ---
MS RN NOTE PATIENT BLOOD SUGAR IS 297. PATIENT REFUSING REGULAR INSULIN 9 UNITS PRN ORDERED PER SLIDING SCALE. PATIENT GETTING AGITATED WHEN REFUSING. EXPLAINED AND EDUCATED RISKS VS BENEFITS CALMLY. EXPLAINED HYPERGLYCEMIA AND HYPOGLYCEMIA EFFECTS. PATIENT CONTINUED TO REFUSE.
[2020-02-17] MEDS: glipiZIDE 5 MG TABLET PO SCH ×2 (13:46→17:20)
--- NOTE | 2020-02-17 17:09 | NUR ---
MS RN NOTE PATIENT BLOOD SUGAR IS 314. PATIENT REFUSING REGULAR INSULIN 12 UNITS PRN ORDERED PER SLIDING SCALE. PATIENT GETTING AGITATED WHEN REFUSING. PATIENT STATES "NO NO NO I DONT WANT INSULIN, PILLS FOR MY DIABETES ONLY". EXPLAINED AND EDUCATED RISKS VS BENEFITS CALMLY. EXPLAINED HYPERGLYCEMIA AND HYPOGLYCEMIA EFFECTS. PATIENT CONTINUED TO REFUSE. [place] CUM[place]INGS IS ALREADY AWARE. Addendum: 02/17/20 at 1721 by LESLIE FAULKNER RN MS RN NOTE PATIENT BLOOD SUGAR IS 314. PATIENT REFUSING REGULAR INSULIN 12 UNITS PRN ORDERED PER SLIDING SCALE. PATIENT GETTING AGITATED WHEN REFUSING. PATIENT STATES "NO NO NO I DONT WANT INSULIN. I WANT PILLS FOR MY DIABETES ONLY". EXPLAINED AND EDUCATED RISKS VS BENEFITS CALMLY. EXPLAINED HYPERGLYCEMIA AND HYPOGLYCEMIA EFFECTS. PATIENT CONTINUED TO REFUSE. [place] IS ALREADY AWARE.
[2020-02-17] MEDS: METFORMIN 500 MG TABLET PO SCH (17:20)
[2020-02-17 17:39] VITALS: BP 119/77
--- NOTE | 2020-02-17 18:36 | NUR ---
MS RN CLOSING NOTE PATIENT IN BED RESTING COMFORTABLY. PATIENT IN NO ACUTE DISTRESS. NO SOB NOTED. PATIENT BREATHING IS EVEN AND UNLABORED. PATIENT SAFETY PRECAUTIONS IN PLACE. PATIENT KEPT CLEAN, DRY, AND COMFORTABLE THROUGHOUT SHIFT. BED ALARM IS ON. PATIENT BED IS LOCKED AND IN LOWEST POSITION. CALL LIGHT WITHIN REACH. WILL ENDORSE CARE TO PM SHIFT FOR KRISTA.
--- NOTE | 2020-02-17 19:20 | NUR ---
RN medsurg opening notes Received Pt from morning nurse. Pt is resting in bed comfortably. Pt is alert and orientedX3. Respiration is normal in room air. No SOB. No S/S of distress noted. IV sites at RAC # 18 is clean, intact and infusing well NS @ 90 ml/hr. Safety precaution is maintained. Bed at low position, brakes locked, side railsupX3 and call light is within reach. Will continue to monitor.
[2020-02-17 20:00] VITALS: BP 110/75
[2020-02-17] MEDS: PANTOPRAZOLE 40 MG VIAL IV SCH (20:44)
--- NOTE | 2020-02-17 20:54 | NUR ---
RN medsur notes Pt blood sugar at 2100 is 278. Pt refused regular insulin. Pt stated "No insulin!! I only want pills!" Pt is non compliant and easily agitated. Made aware risks and benefits. Offered multiple times. Pt keep refusing. Will continue to monitor.
[2020-02-18] MEDS: INSULIN REGULAR, HUMAN 100 UNIT/ML 3 ML VIAL SQ PRN ×3 (00:20→21:23)
[2020-02-18] MEDS: BLOOD SUGAR DIAGNOSTIC 1 EACH STRIP IN SCH ×6 (00:20→20:55)
--- NOTE | 2020-02-18 00:32 | NUR ---
RN medsur notes Pt refused skin assessment and also refused pictures of skin taken. Made aware risks and benefits. Tried multiple times. Pt keep refusing. Will continue to monitor.
[2020-02-18] MEDS: VANCOMYCIN 0.75 GM in IV D5W 250 ML IV SCH ×3 (03:24→19:19)
[2020-02-18] MEDS: PIPERACILLIN /TAZOBACTAM 3.375 G in IV D5W 50 ML IV SCH (05:19)
--- NOTE | 2020-02-18 06:00 | NUR ---
ДМИТРИЙ medsur notes Pt refused to have blood drawn at this time. Made aware risks and benefits. Pt stated "Come back later!" Spoke and informed Title Curative Specialist to come back at 0700. Will continue to monitor.
--- NOTE | 2020-02-18 06:50 | NUR ---
RN medsurg closing notes Pt is resting in bed comfortably. Pt is alert and orientedX3. Respiration is normal in room air. No SOB. No S/S of distress noted. VS is stable. Afebrile. IV sites at RAC # 18 is clean, intact and infusing well NS @ 90 ml/hr. All needs met and attended. Safety precaution is maintained. Bed at low position, brakes locked, side railsupX3 and call light is within reach. Will endorse to morning nurse for KRISTA.
--- NOTE | 2020-02-18 07:25 | NUR ---
MS RN NOTES PATIENT IN BED SLEEPING, EASILY AWAKEN BY NAME AND LIGHT TOUCH. ALERT AND ORIENTED X 3. ON ROOM AIR, WITH NO SIGNS OF RESPIRATORY DISTRESS AT THIS TIME WITH EVEN NON-LABORED BREATHING, AND WITH NO SOB NOTED. PATIENT SKIN WARM AND DRY TO TOUCH, IV ACCESS INTACT AND PATENT WITH NORMAL SALINE INFUSING AT 90ml/hr. PATIENT PRESENTS WITH NO PAIN OR DISCOMFORT AT THIS TIME. SAFETY PRECAUTIONS IMPLEMENTED WITH BED LOCKED, BED IN THE LOWEST POSITION, BILATERAL SIDE RAILS UP, AND CALL LIGHT WITHIN EASY REACH. WILL CONTINUE TO MONITOR PATIENT.
[2020-02-18] MEDS: glipiZIDE 5 MG TABLET PO SCH ×2 (08:29→16:19)
[2020-02-18] MEDS: METFORMIN 500 MG TABLET PO SCH ×2 (08:29→16:19)
[2020-02-18] MEDS: IV NS 0.9% 1,000 ML IV PRN (08:37)
--- NOTE | 2020-02-18 08:40 | NUR ---
MS RN NOTES PATIENT'S BLOOD SUGAR 319, INFORMED THE PATIENT THE NEED OF INSULIN PER SLIDING SCALE PROTOCOL. PATIENT REFUSED AND STATES HE WILL DRINK HIS MEDICATION INSTEAD. EDUCATED THE PATIENT THE IMPORTANCE, RISKS AND BENEFITS OF INSULIN MULTIPLE TIME. PATIENT STILL REFUSED. WILL CONTINUE TO MONITOR PATIENT.
[2020-02-18 08:50] VITALS: BP 112/69
--- NOTE | 2020-02-18 12:37 | NUR ---
MS RN NOTES PATIENT'S BLOOD SUGAR 341, INFORMED THE PATIENT THE NEED OF INSULIN PER SLIDING SCALE PROTOCOL. PATIENT REFUSED AND STATES HE WILL DRINK HIS MEDICATION INSTEAD. EDUCATED THE PATIENT THE IMPORTANCE, RISKS AND BENEFITS OF INSULIN MULTIPLE TIME. PATIENT STILL REFUSED. HOSPITALIST MADE AWARE AND CHARGE NURSE AWARE WELL. WILL CONTINUE TO MONITOR PATIENT.
[2020-02-18] MEDS: MEROPENEM 1 G in IV NS 0.9% 100 ML IV SCH ×2 (13:22→20:49)
[2020-02-18 15:27] LABS: CALCIUM, SERUM 7.8 mg/dL (8.5-10.1); CREATININE 1.2 mg/dL (0.6-1.3); POTASSIUM 3.6 mmol/L (3.5-5.1)
[2020-02-18] MEDS: PANTOPRAZOLE 40 MG TABLET.DR PO SCH (16:19)
--- NOTE | 2020-02-18 16:31 | NUR ---
MS RN NOTES PATIENT'S BLOOD SUGAR 224, INFORMED THE PATIENT THE NEED OF INSULIN PER SLIDING SCALE PROTOCOL AND PATIENT REFUSED. EDUCATED THE PATIENT THE IMPORTANCE, RISKS AND BENEFITS OF INSULIN MULTIPLE TIME. PATIENT STILL REFUSED. HOSPITALIST MADE AWARE AND CHARGE NURSE AWARE WELL. WILL CONTINUE TO MONITOR PATIENT.
[2020-02-18 16:58] VITALS: BP 116/80
--- NOTE | 2020-02-18 18:27 | NUR ---
MS RN NOTES PATIENT IN BED WATCHING TV. ALERT AND ORIENTED, ON ROOM AIR WITH NO SIGNS OF RESPIRATORY DISTRESS WITH EVEN NON-LABORED BREATHING, AND NO SIGNS OF SOB. PATIENT IV ACCESS INTACT AND PATENT INFUSING NORMAL SALINE AT 90ml/hr. MET ALL OF PATIENT'S NEEDS. PATIENT DENIES PAIN OR DISCOMFORT AT THIS TIME. SAFETY PRECAUTIONS IMPLEMENTED WITH BED LOCKED, BED IN THE LOWEST POSITION, BILATERAL SIDE RAILS UP, AND CALL LIGHT WITHIN EASY REACH OF THE PATIENT. WILL ENDORSE PLAN OF CARE TO UPCOMING NURSE.
--- NOTE | 2020-02-18 19:27 | NUR ---
MS RN OPENING NOTES PATIENT RECEIVED RESTING IN BED COMFORTABLY; A/OX3; BREATHING EVEN AND UNLABORED; TOLERATING ROOM AIR WELL; NO SOB NOTED; PER AM SHIFT, PATIENT IS ABLE TO AMBULATE TO RESTROOM ON HIS OWN, PER PHYSICAL THERAPY, PATIENT OKAY TO AMBULATE BY HIMSELF; R AC # 18 INTACT AND PATENT, INFUSING NS @90ML/HR; TOLERATING IVF WELL; NO S/S OF REDNESS OR INFILTRATION NOTED; PER AM SHIFT, PATIENT REFUSING INSULIN COVERAGE D/T PATIENT ALREADY TAKING PO MEDICATIONS; SAFETY PRECAUTIONS IMPLEMENTED; BED LOCKED IN LOW POSITION; SIDE RAILSX2; CALL LIGHT WITHIN REACH; WILL CONT TO MONITOR
[2020-02-18 20:00] VITALS: BP 128/79
--- NOTE | 2020-02-18 21:24 | NUR ---
MS RN NOTES PATIENT REFUSING INSULIN COVERAGE; BS 256; PATIENT EDUCATED ON RISKS AND BENEFITS; PATIENT RE-EDUCATED ON MEDICATION COMPLIANCE THROUGHOUT HOSPITALIZATION; PATIENT STILL REFUSED; PATIENT STATES HE DOES NOT WANT HIS BODY TO ADAPT/DEPEND ON INSULIN SINCE HE HIS HOMELESS AND WILL NOT BE ABLE TO AFFORD THE INSULIN; WILL CONT TO MONITOR
[2020-02-19] MEDS: BLOOD SUGAR DIAGNOSTIC 1 EACH STRIP IN SCH ×6 (00:15→20:32)
[2020-02-19] MEDS: INSULIN REGULAR, HUMAN 100 UNIT/ML 3 ML VIAL SQ PRN ×3 (04:39→20:32)
[2020-02-19] MEDS: MEROPENEM 1 G in IV NS 0.9% 100 ML IV SCH ×3 (04:41→20:26)
--- NOTE | 2020-02-19 06:35 | NUR ---
MS RN NOTES PATIENT REFUSING LAB DRAW AT THIS TIME, JOY OPERATOR WILL ATTEMPT LATER, WILL INFORM DAY SHIFT
--- NOTE | 2020-02-19 06:37 | NUR ---
MS RN CLOSING NOTES PATIENT RESTING IN BED COMFORTABLY; SLEEPING IN BED BUT EASILY AROUSABLE; A/OX4; BREATHING EVEN AND UNLABORED; NO SOB NOTED; TOLERATING ROOM AIR WELL; R AC #18 INTACT AND PATENT, INFUSING NS @ 90ML/HR; TOLERATING IVF WELL; PATIENT REFUSING INSULIN COVERAGE, CHARGE NURSE AND MD AWARE; WILL INFORM ONCOMING SHIFT; PATIENT ABLE TO MAKE NEEDS KNOWN; ALL NEEDS RENDERED; SAFETY PRECAUTIONS IMPLEMENTED; BED LOCKED IN LOW POSITION; SIDE RAILSX2; CALL LIGHT WITHIN REACH; WILL ENDORSE KRISTA TO ONCOMING SHIFT
--- NOTE | 2020-02-19 07:30 | NUR ---
MS/RN OPENING NOTES Received patient resting in bed, A&O x 3. No complaints of pain and discomfort at this time. Breathing even and non-labored on RA, no SOB noted. No respiratory or cardiac distress noted. IV access on R AC #18 gauge, patent and intact, and running NS @ 90 mls/hr. No infection, infiltration, or bleeding noted on site. Sensation from all peripheral extremities intact. Refused to do skin assessment, explained risks and benefits. Fall precautions maintained. Instructed pt to use call light when in need of assistance. Will continue with current plan of care.
[2020-02-19 08:00] VITALS: BP_SYST 104; BP_SYST 114; BP_DIAS 59; BP_DIAS 74
[2020-02-19] MEDS: METFORMIN 500 MG TABLET PO SCH ×2 (08:15→16:11)
[2020-02-19] MEDS: PANTOPRAZOLE 40 MG TABLET.DR PO SCH (08:15)
[2020-02-19] MEDS: glipiZIDE 5 MG TABLET PO SCH ×2 (08:15→16:11)
--- NOTE | 2020-02-19 08:15 | NUR ---
MS/RN NOTES Patient BS 285, refusing insulin. States he "does not want body to depend on insulin, would rather take antidiabetic pills." Educated risks and benefits. Addendum: 02/19/20 at 1152 by SUZANNE TRAORE RN Non-administered insulin.
--- NOTE | 2020-02-19 09:26 | NUR ---
WOUND CARE CONSULT: PT PRESENTS WITH INDURATED AREA TO RT LOWER BUTTOCK WELL REDNESS WITH HERNIA TO RT INGUINAL AREA, PRESENT ON ADMISSION. MSG LEFT FOR DR BUCK BUENO (PREVIOUSLY CONSULTED GENERAL SURGEON) REGARDING INGUINAL REDNESS. PT IS INDEPENDENT WITH BED MOBILITY AND IS CONTINENT. WILL SEE PRN.
[2020-02-19 10:01] LABS: CALCIUM, SERUM 7.5 mg/dL (8.5-10.1); CREATININE 1.1 mg/dL (0.6-1.3); POTASSIUM 3.8 mmol/L (3.5-5.1)
[2020-02-19] MEDS: IV NS 0.9% 1,000 ML IV PRN (11:50)
--- NOTE | 2020-02-19 12:30 | NUR ---
MS/RN NOTE BS checked, 309. Patient refuses to take insulin. Educated risks and benefits. Non-administered insulin.
--- NOTE | 2020-02-19 16:30 | NUR ---
12:15pm This SW was contacted by banking and finance instructor Dianne. Patient records have different names. This SW attempted to speak with the patient however patients doctor was speaking with him. This SW to return at a later time to speak with this patient.
--- NOTE | 2020-02-19 16:30 | NUR ---
1:00pm This SW spoke with the patient regarding patient records. Patient confirmed correct spelling, date of , and social security number. Patient informed this SW that [facility] was [facility] at [facility] through [facility]. Patient would like to return to [facility] as he has all of his belongings on site.
--- NOTE | 2020-02-19 18:30 | NUR ---
MS/RN CLOSING NOTES Patient resting in bed, A&O x 3. Denies any pain and discomfort throughout shift. Remains stable, VSS, afebrile. Breathing even and non-labored on RA, no SOB noted. No respiratory or cardiac distress noted. IV access on R AC #18 gauge, remain patent and intact, and running NS @ 90 mls/hr. No infection, infiltration, or bleeding noted on site. Sensation from all peripheral extremities intact. Bed locked to its lowest position, side rails up x2, call light within reach. Instructed pt to use call light when in need of assistance. Will endorse to shift supervisor film processing nurse.
--- NOTE | 2020-02-19 19:40 | NUR ---
MS RN OPENING NOTES PATIENT RECEIVED RESTING IN BED COMFORTABLY; A/OX3, BREATHING EVEN AND UNLABORED; NO SOB NOTED; TOLERATING ROOM AIR WELL; R AC #18 INTACT, INFUSING NS @90ML/HR, TOLERATING IVF WELL; PATIENT STILL REFUSING INSULIN COVERAGE AND DOES NOT LIKE TO BE BOTHERED, PER AM SHIFT; WILL CONT TO MONITOR; SAFETY PRECAUTIONS IMPLEMENTED; BED LOCKED IN LOW POSITION; SIDE RAILSX2; CALL LIGHT WITHIN EASY REACH; WILL CONT PLAN OF CARE AND CONT TO MONITOR PATIENT
[2020-02-19 20:00] VITALS: BP 111/75
[2020-02-20] MEDS: BLOOD SUGAR DIAGNOSTIC 1 EACH STRIP IN SCH ×5 (01:00→16:39)
--- NOTE | 2020-02-20 01:14 | NUR ---
MS RN NOTES PATIENT REFUSING SCHEDULED ACCU CHECK; PATIENT EDUCATED ON COMPLIANCE THROUGHOUT HOSPITALIZATION, PATIENT UNDERSTANDS BUT DOES NOT WANT TO BE BOTHERED WHEN SLEEPING; CHARGE NURSE AWARE; WILL CONT TO MONITOR
[2020-02-20] MEDS: MEROPENEM 1 G in IV NS 0.9% 100 ML IV SCH ×2 (04:46→12:13)
[2020-02-20] MEDS: INSULIN REGULAR, HUMAN 100 UNIT/ML 3 ML VIAL SQ PRN (04:52)
[2020-02-20 06:07] LABS: *SPE A/G RATIO 0.7 (0.7-1.7); *SPE ALBUMIN 3.1 g/dL (2.9-4.4); *SPE ALPHA-1-GLOBULIN 0.2 g/dL (0.0-0.4); *SPE ALPHA-2-GLOBULIN 0.6 g/dL (0.4-1.0); *SPE BETA GLOBULIN 1.2 g/dL (0.7-1.3); *SPE GLOBULIN, TOTAL 4.7 g/dL (2.2-3.9); *SPE M-SPIKE Not Observed g/dL (Not Observed); *SPEGAMMA GLOBULIN 2.6 g/dL (0.4-1.8)
--- NOTE | 2020-02-20 06:50 | NUR ---
MS RN CLOSING NOTES PATIENT RESTING IN BED COMFORTABLY; A/OX3, BREATHING EVEN AND UNLABORED; NO DISTRESS NOTED; TOLERATING ROOM AIR WELL; PATIENT NON-COMPLIANT AT TIMES; PATIENT REFUSING INSULIN COVERAGE BUT IS AWARE OF RISKS/BENEFITS; R AC #18, INFUSING NS @ 90ML/HR; TOLERATING IVF WELL; ALL NEEDS RENDERED; SAFETY PRECAUTIONS IMPLEMENTED; BED LOCKED IN LOWEST POSITION; SIDE RAILSX2; CALL LIGHT WITHIN REACH; WILL ENDORSE KRISTA TO ONCOMING SHIFT
[2020-02-20] MEDS: PANTOPRAZOLE 40 MG TABLET.DR PO SCH (07:30)
--- NOTE | 2020-02-20 07:43 | NUR ---
MS RN NOTES PATIENT IV SITE CAME OUT ACCIDENTALLY, IV TIP INTACT; NO S/S OF REDNESS OR BLEEDING NOTED; PATIENT FRUSTRATED/ANGRY; AM SHIFT AWARE; PER AM SHIFT, WILL RE-INSERT FOR PATIENT LATER ONCE HE COOLS OFF;
[2020-02-20 08:00] VITALS: BP 115/69
--- NOTE | 2020-02-20 08:00 | NUR ---
MS/RN - Assessment Patient in bed awake, A/O x 3, denies pain, no apparent distress, stable on room air. Patient refused peripheral IV insertion and accu-check to be done stated "Leave me alone". Explained the importance of having IV line for IVF and IV antibiotic management but still refused. All needs attended. Patient updated on plan of care. Will continue with current medical management.
[2020-02-20] MEDS: glipiZIDE 5 MG TABLET PO SCH ×2 (08:07→16:39)
[2020-02-20] MEDS: METFORMIN 500 MG TABLET PO SCH ×2 (08:08→16:39)
--- NOTE | 2020-02-20 14:13 | NUR ---
This SW called [facility] option 7 for this patient. This SW explain to Clifford that the [facility] [place] [employer]. Clifford informed this SW that his stay on February 17. Per Clifford, she stated that she will verify what happened at [facility] prior to patients arrival, patients belongings, and if the length of stay can be extended. This SW provided Clifford with call back information.
--- NOTE | 2020-02-20 16:16 | NUR ---
2:35pm This SW informed lamps tester and inspector Nino, Lever Operator Kimberly, and patient information provided by Clifford from [facility] including [facility] able [facility] lamps tester and inspector Nino notified that the patient needs to be discharged before check-in time of 7pm and to be provided with a TAP card for departure.
--- NOTE | 2020-02-20 16:16 | NUR ---
2:30pm This received a call back from Clifford from [facility] regarding this patient. Patient is able to return to his room at [facility]. Clifford provided information regarding patients curfew. Clifford unsure of the new length of stay but provided this information stating that if patient stay is cut short that he will be provided with fpc information.
--- NOTE | 2020-02-20 16:30 | NUR ---
MS/RN - Notes Called and faxed to [facility] pharmacy# [id number] (fax: [phone], tel: [phone]) prescription for Augmentin and Culturelle.
--- NOTE | 2020-02-20 17:01 | NUR ---
MS/RN - Discharge Patient is alert and oriented x 4, discharged to [facility] in stable condition, remain afebrile, denies pain, not in any form of distress, ambulatory with steady gait, denies SI/HI, no visual or auditory hallucinations at this time. Reviewed discharge instructions with patient and he verbalized full understanding of all teachings including follow up with PCP in 2 weeks. Patient was advised to seek immediate medical attention for chest pain, shortness of breath, palpitations, abdominal pain or distention, intractable nausea and vomiting, diarrhea, weakness or any other emergent concerns. All belongings with patient and he deny any missing items. Patient refused photos to be taken of skin. . Patient signed discharge paperwork/homeless waiver form and copies were given per protocol. Dinner, snacks, TAP card and appropriate clothing were given to the patient, left the unit at 16:50.
== END 2020-02-20 17:47 | disposition home or self-care (01) | DRG 247 ==
LOC: ER 12:58 → ICU 17:57 → EDBD 17:57 → MERGE 17:57 → TELE 02-16 18:45 → MED 02-16 22:39
PROVIDERS: ADMIT Nurse Practitioner Acute Care; ATTEND Internal Medicine
DX: K56.600 Partial intestinal obstruction, unspecified as to cause (principal); K56.7 Ileus, unspecified; B96.20 Unspecified Escherichia coli [E. coli] as the cause of diseases classified elsewhere; D61.818 Other pancytopenia; E87.1 Hypo-osmolality and hyponatremia; E87.6 Hypokalemia; K40.90 Unilateral inguinal hernia, without obstruction or gangrene, not specified as recurrent; L02.31 Cutaneous abscess of buttock; N39.0 Urinary tract infection, site not specified; K80.20 Calculus of gallbladder without cholecystitis without obstruction; E11.65 Type 2 diabetes mellitus with hyperglycemia; K74.60 Unspecified cirrhosis of liver; K76.6 Portal hypertension; L03.311 Cellulitis of abdominal wall; K86.89 Other specified diseases of pancreas; K62.89 Other specified diseases of anus and rectum; D50.9 Iron deficiency anemia, unspecified; D69.6 Thrombocytopenia, unspecified; E72.51 Non-ketotic hyperglycinemia; Z59.0 Homelessness; Z91.14 Patient's other noncompliance with medication regimen; Z91.19 Patient's noncompliance with other medical treatment and regimen; L80 Vitiligo; K61.1 Rectal abscess; R18.8 Other ascites; B95.5 Unspecified streptococcus as the cause of diseases classified elsewhere; B19.20 Unspecified viral hepatitis C without hepatic coma
CPT/HCPCS: 36415; 74018; 80048-TC; 80053-TC; 80061-TC; 80076-TC; 80202-TC; 81000-TC; 82140-TC; 82728-TC; 82962-TC; 83540-TC; 83605-TC; 83690-TC; 83735-TC; 84100-TC; 84155; 84165; 84439-TC; 84443-TC; 85025-TC; 87086-TC; 87186-TC; 93307-TC; 97116-TC; 97530-TC; A4216; C9113; G0378; J0696; J1815; J1885; J2185; J2543; J3370; J7030; J7060; U0003-CS

== ENCOUNTER 2020-05-28 08:30 | Emergency (ER) | payer OTHER ==
[~2020-05-28] VITALS: Ht 170.2 cm; Wt 68.0 kg
[~2020-05-28 08:30] MED LIST changes: +METF-442 PO
--- NOTE | 2020-05-28 08:42 | NUR ---
CAME IN FOR GEN BODY ACHE X 2 MONTHS,TESTED NEGATIVE TO COVID 19 2 DAYS AGO. TO ER BED 11, HOOKED TO BP CUFF AND POX, CHANGED TO HOSP GOWN, WARM BLANKET PROVIDED, PATIENT AAOx 4, BREATHING EVEN AND UNLABORED, NAD NOTED, DR VAN AT BEDSIDE
[2020-05-28] MEDS ORDERED: KETOROLAC TROMETHAMINE 15 MG/ML VIAL ONE (09:07)
[2020-05-28] MEDS ORDERED: glipiZIDE 10 MG TABLET PO ONE (09:30)
[2020-05-28] MEDS ORDERED: METFORMIN 500 MG TABLET PO ONE (09:30)
[2020-05-28] MEDS ORDERED: KETOROLAC TROMETHAMINE INJ 30 MG/ML VIAL IM ONE (09:30)
[2020-05-28] MEDS ORDERED: glipiZIDE 10 MG TABLET ONE (09:36)
--- NOTE | 2020-05-28 09:50 | NUR ---
Patient given written and verbal discharge instructions. Patient verbalizes understanding of instructions. Patient is ambulatory with steady gait. Refuses offer of prison placement. Patient given list of available shelters in surrounding area. Removed name band. In proper clothing. All belongings with patient.
[2020-05-28 09:52] VITALS: BP 129/86
== END 2020-05-28 09:52 | disposition home or self-care (01) ==
LOC: ER 08:36
DX: E11.40 Type 2 diabetes mellitus with diabetic neuropathy, unspecified (principal); K46.9 Unspecified abdominal hernia without obstruction or gangrene; Z91.14 Patient's other noncompliance with medication regimen; I10 Essential (primary) hypertension; Z98.890 Other specified postprocedural states; Z59.0 Homelessness; Z60.2 Problems related to living alone; Z79.899 Other long term (current) drug therapy; Z79.84 Long term (current) use of oral hypoglycemic drugs
CPT/HCPCS: 82962; 96372; 99283; J1885

== ENCOUNTER 2020-07-12 00:36 | Emergency (ER) | payer OTHER ==
[~2020-07-12] VITALS: Ht 170.2 cm; Wt 68.0 kg
[2020-07-12 00:40] VITALS: BP 134/81
== END 2020-07-12 01:04 | disposition home or self-care (01) ==
LOC: ER 00:36
DX: Z76.0 Encounter for issue of repeat prescription (principal); I10 Essential (primary) hypertension; E11.9 Type 2 diabetes mellitus without complications; L80 Vitiligo; Z86.19 Personal history of other infectious and parasitic diseases; Z98.890 Other specified postprocedural states; Z60.2 Problems related to living alone; Z79.84 Long term (current) use of oral hypoglycemic drugs; Z79.899 Other long term (current) drug therapy

== ENCOUNTER 2022-04-26 05:20 | Emergency (ER) | payer OTHER ==
[~2022-04-26] VITALS: Ht 165.1 cm; Wt 59.0 kg
[~2022-04-26 05:20] MED LIST changes: -LACT10SO PO; +LACT10SO3 PO; +LISI10TA29 PO; -LISI10TA5 PO
--- NOTE | 2022-04-26 05:30 | NUR ---
[id number] FROM [facility] C/O ABD PAIN +N/V. PATIENT IS AAOX4. CUSSING ALOT,GIVING HARD TIME TO DO SOME TEST. PT HAS ABDOMINAL DISTENTION. PLACED COMFORTABLY IN BED. ATTACHED TO MONITOR. VITALS CHECKED.
--- NOTE | 2022-04-26 05:45 | NUR ---
CXR DONE AT BEDSIDE
--- NOTE | 2022-04-26 05:52 | NUR ---
IV CANNULA G18 INSERTED ON RIGHT AC. BLOOD DRAWN AND SENT TO LAB.
--- NOTE | 2022-04-26 05:54 | NUR ---
EKG DONE AT BEDSIDE
[2022-04-26] MEDS: IV NS 0.9% 1,000 ML BAG IV ONE (05:55)
[2022-04-26] MEDS ORDERED: ONDANSETRON HCL/PF 4 MG/2 ML VIAL ONE (05:56)
[2022-04-26] MEDS: ONDANSETRON HCL/PF 4 MG/2 ML VIAL IVP ONE (05:58)
--- NOTE | 2022-04-26 06:01 | NUR ---
SEEN BY DR BLACKBURN AT BEDSIDE
[2022-04-26] MEDS ORDERED: MORPHINE SULFATE INJ 2 MG/ML DISP.SYRIN ONE (06:19)
--- NOTE | 2022-04-26 06:20 | NUR ---
CALLED PHARMACY ABOUT DROPERIDOL MEDICATION, PER PHARMACIST WE DONT CARRY THAT MEDICINE. DR BLACKBURN MADE AWARE, CHANGED MEDICATION TO HALDOL 2MG IVP
[2022-04-26] MEDS: MORPHINE SULFATE INJ 2 MG/ML DISP.SYRIN IV ONE (06:24)
[2022-04-26] MEDS ORDERED: HALOPERIDOL LACTATE INJ 5 MG/ML VIAL ONE (06:29)
[2022-04-26] MEDS: HALOPERIDOL LACTATE INJ 5 MG/ML VIAL IV ONE (06:32)
[2022-04-26] MEDS: DROPERIDOL 5 MG/2 ML IV ONE (06:33)
[2022-04-26 06:42] LABS: BASOPHILS # (AUTO) 0.1 K/uL (0.0-0.2); BASOPHILS % (AUTO) 1.2 % (0.0-2.0); EOSINOPHILS % (AUTO) 1.8 % (0.0-6.0); HEMATOCRIT 28 % (39-51); HEMOGLOBIN 8.8 g/dL (13.5-17.5); LYMPHOCYTES # (AUTO) 0.6 K/uL (0.8-4.8); LYMPHOCYTES % (AUTO) 8.7 % (20.0-44.0); MEAN CORPUSCULAR HGB CONC 31 g/dl (31.0-36.0); MEAN CORPUSCULAR VOLUME 72 fL (80-96); MONOCYTES # (AUTO) 0.5 K/uL (0.1-1.30); MONOCYTES % (AUTO) 6.7 % (2.0-12.0); NEUTROPHILS # (AUTO) 6.1 K/uL (1.8-8.9); NEUTROPHILS % (AUTO) 81.6 % (43.0-81.0); PLATELET COUNT (AUTO) 209 K/uL (150-450); RED BLOOD CELL COUNT(AUTO) 3.92 MIL/uL (4.5-6.0); WHITE BLOOD COUNT (AUTO) 7.4 K/uL (4.3-11.0)
[2022-04-26 06:43] LABS: ALCOHOL, BLOOD < 3 mg/dL (0-0); SERUM AMMONIA 28 umol/L (11-32)
[2022-04-26 06:50] LABS: TOTAL PROTEIN, SERUM 7.7 g/dL (6.4-8.2)
--- NOTE | 2022-04-26 07:08 | NUR ---
COVID SWAB DONE AND SENT TO LAB
--- NOTE | 2022-04-26 07:15 | NUR ---
RESTING COMFORTABLY , REFUSED TO GIVE URINE SAMPLE
--- NOTE | 2022-04-26 07:37 | NUR ---
DR WATSON [phone] ([facility])
--- NOTE | 2022-04-26 08:00 | NUR ---
[facility] DOCTOR SPEAKING WITH DR. BLACKBURN.
[2022-04-26] MEDS ORDERED: TAMS-12 PO (08:51)
[2022-04-26] MEDS ORDERED: FERR325T23 PO (08:51)
--- NOTE | 2022-04-26 09:01 | NUR ---
PER SOC FROM LAB, DISREGARD CMP RESULT; WILL UPDATE CMP RESULT ONCE DONE.
--- NOTE | 2022-04-26 09:30 | NUR ---
Epic entry level installation technician paged via exchange
--- NOTE | 2022-04-26 09:57 | NUR ---
No updated coagulation labs available to proceed with the Paracentesis. RN,November was informed to order a stat lab. Per RN pt is not on any bloodthinner. Consent pending
--- NOTE | 2022-04-26 10:02 | NUR ---
SPOKE TO DR. BLACKBURN TO ORDER PT, PTT , INR FOR PARACENTHESIS
[2022-04-26 10:09] LABS: BILIRUBIN,TOTAL 0.9 mg/dL (0.2-1.0); CARBON DIOXIDE 27 mmol/L (21-32); CHLORIDE 101 mmol/L (98-107); POTASSIUM 4.7 mmol/L (3.5-5.1); SODIUM SERUM 136 mmol/L (136-145)
[2022-04-26 10:10] LABS: ALKALINE PHOSPHATASE 140 U/L (46-116); ASPARTATE AMINOTRANSFERASE 28 U/L (15-37)
[2022-04-26 10:11] LABS: CREATININE 0.8 mg/dL (0.6-1.3)
[2022-04-26 10:12] LABS: ALANINE AMINOTRANSFERASE 31 U/L (12-78); BILIRUBIN,DIRECT 0.4 mg/dL (0.0-0.2)
[2022-04-26 10:13] LABS: ALBUMIN 2.2 g/dL (3.4-5.0); CALCIUM, SERUM 7.9 mg/dL (8.5-10.1); GLUCOSE 271 mg/dL (74-106); UREA NITROGEN, BLOOD 10 mg/dL (7-18)
--- NOTE | 2022-04-26 10:54 | NUR ---
NO TRANSFER INFO OBTAINED AT THIS TIME,DR BLACKBURN DECIDED TO ADMIT
--- NOTE | 2022-04-26 10:57 | NUR ---
[facility] Clipmarks reducing salon attendant paged via exchange
--- NOTE | 2022-04-26 11:22 | NUR ---
CALL FROM DESKTOP SPECIALIST ELIANA AUGUSTIN,REPORT GIVEN, HE WILL PRESENT IT TO HIS MD AND GIVE US A CALL BACK
[2022-04-26 11:33] VITALS: BP 140/88
--- NOTE | 2022-04-26 11:44 | NUR ---
DR. GONZALES AT BED SIDE
--- NOTE | 2022-04-26 12:18 | NUR ---
LA care: José Miguel transfer to [facility] Accepting: Dr. Hanna CANCINO ambulance authorization will be - [facility]
--- NOTE | 2022-04-26 12:21 | NUR ---
Raúl tierney in ED - 04/26/22 at 1223 by VERNELL PARACENTIS OUTPUT = [address] BLACKBURN NOTIFIED
--- NOTE | 2022-04-26 12:23 | NUR ---
PARACENTESIS OUTPUT = [address] BLACKBURN NOTIFIED
--- NOTE | 2022-04-26 12:23 | NUR ---
[facility] CALLED ETA 60 MINS PER AMANDEEP.
--- NOTE | 2022-04-26 12:30 | NUR ---
PARACENTESIS SAMPLE SENT TO LAB FOR TESTS ORDERED
--- NOTE | 2022-04-26 12:47 | NUR ---
Garry Sandoval Pt is to be moved to [id number] They said they would call back to confirm in 20 minutes call was taken at 13:20 p.m
--- NOTE | 2022-04-26 13:49 | NUR ---
EMT AT BEDSIDE TO PICKUP PT
== END 2022-04-26 14:02 | disposition short-term general hospital (02) ==
LOC: ER 05:20
DX: K74.60 Unspecified cirrhosis of liver (principal); R18.8 Other ascites; Z86.19 Personal history of other infectious and parasitic diseases; R46.2 Strange and inexplicable behavior; Z20.822 Contact with and (suspected) exposure to COVID-19; Z59.01 Sheltered homelessness; L80 Vitiligo; I10 Essential (primary) hypertension; J45.909 Unspecified asthma, uncomplicated
CPT/HCPCS: 36415; 71045-TC; 76942-TC; 80048-TC; 80076-TC; 82140-TC; 83690-TC; 84484-TC; 85025-TC; 85730-TC; 87070-TC; 87081-TC; C9803; G0480; J1630; J1790; J2270; J2405; J7030

== ENCOUNTER 2022-05-27 00:23 | Emergency (ER) | payer OTHER ==
[~2022-05-27] VITALS: Ht 170.2 cm; Wt 65.8 kg
[~2022-05-27 00:23] MED LIST changes: +FERR325T23 PO; -LACT10SO3 PO; -METF-440 PO; +TAMS-12 PO; -TRAM50TA2 PO
--- NOTE | 2022-05-27 00:53 | NUR ---
PT BIBRA C/O DIFFICULTLY TO AROUSE. PT AAOX3 BREATHING EVENLY AND UNLABORED. PT IS NON COMPLIANT WITH DM MEDICATION. CRYSTALIZED SUBSTANCE FOUND IN POCKETS. PT DENIES TAKING ANY DRUGS. RAC 20 INITIATED BY EMS. PT ABLE TO ANSWER QUESTIONS. MD AT BEDSIDE
[2022-05-27] MEDS ORDERED: IV NS 0.9% 1,000 ML BAG IV ONE (01:00)
--- NOTE | 2022-05-27 01:00 | NUR ---
BLOOD SENT TO LAB
[2022-05-27 01:31] LABS: BASOPHILS # (AUTO) 0.1 K/uL (0.0-0.2); BASOPHILS % (AUTO) 1.5 % (0.0-2.0); EOSINOPHILS % (AUTO) 3.5 % (0.0-6.0); HEMATOCRIT 25 % (39-51); HEMOGLOBIN 7.7 g/dL (13.5-17.5); LYMPHOCYTES # (AUTO) 0.8 K/uL (0.8-4.8); LYMPHOCYTES % (AUTO) 14.9 % (20.0-44.0); MEAN CORPUSCULAR HGB CONC 31 g/dl (31.0-36.0); MEAN CORPUSCULAR VOLUME 69 fL (80-96); MONOCYTES # (AUTO) 0.6 K/uL (0.1-1.30); MONOCYTES % (AUTO) 10.5 % (2.0-12.0); NEUTROPHILS # (AUTO) 3.7 K/uL (1.8-8.9); NEUTROPHILS % (AUTO) 69.6 % (43.0-81.0); PLATELET COUNT (AUTO) 210 K/uL (150-450); RED BLOOD CELL COUNT(AUTO) 3.59 MIL/uL (4.5-6.0); WHITE BLOOD COUNT (AUTO) 5.3 K/uL (4.3-11.0)
--- NOTE | 2022-05-27 01:40 | NUR ---
covid swab sent to lab
[2022-05-27 01:55] LABS: CALCIUM, SERUM 7.8 mg/dL (8.5-10.1); CARBON DIOXIDE 30 mmol/L (21-32); CHLORIDE 103 mmol/L (98-107); CREATININE 0.8 mg/dL (0.6-1.3); GLUCOSE 274 mg/dL (74-106); POTASSIUM 3.5 mmol/L (3.5-5.1); SODIUM SERUM 134 mmol/L (136-145); UREA NITROGEN, BLOOD 11 mg/dL (7-18)
[2022-05-27 02:00] LABS: ALANINE AMINOTRANSFERASE 25 U/L (12-78); ALBUMIN 2.2 g/dL (3.4-5.0); ALCOHOL, BLOOD < 3 mg/dL (0-0); ALKALINE PHOSPHATASE 214 U/L (46-116); ASPARTATE AMINOTRANSFERASE 24 U/L (15-37); BILIRUBIN,DIRECT 0.3 mg/dL (0.0-0.2); BILIRUBIN,TOTAL 0.7 mg/dL (0.2-1.0); TOTAL PROTEIN, SERUM 7.8 g/dL (6.4-8.2)
--- NOTE | 2022-05-27 02:01 | NUR ---
URINE SENT TO LAB
[2022-05-27 02:02] LABS: ACETAMINOPHEN < 2 ug/ml (10-30)
--- NOTE | 2022-05-27 03:15 | NUR ---
Patient is resting comfortably in bed with eyes closed. Easily aroused. VSS
[2022-05-27 03:46] LABS: BILIRUBIN,URINE NEGATIVE (NEGATIVE); COLOR,URINE YELLOW (YELLOW); LEUKOCYTE ESTERASE ,URINE 1+ (NEGATIVE); NITRITE, URINE NEGATIVE (NEGATIVE); PROTEIN,URINE NEGATIVE (NEGATIVE); UGLUCOSE 1+ mg/dL (NEGATIVE); UROBILINOGEN,URINE 0.2 EU/dL (0.2)
[2022-05-27 04:05] LABS: RBC,URINE 81-100 /HPF (0-2)
[2022-05-27 04:06] LABS: BACTERIA,URINE Few /HPF (None Seen); SQUAMOUS EPITHELIAL CELL,UR None Seen /HPF (None Seen)
[2022-05-27] MEDS ORDERED: CEFTRIAXONE 1GM BAG (ER ONLY) 50 ML IV ONE (04:22)
[2022-05-27 04:23] LABS: CLINITEST,URINE NEGATIVE
[2022-05-27] MEDS ORDERED: AZITHROMYCIN 500 MG VIAL ONE (04:23)
[2022-05-27] MEDS ORDERED: AZITHROMYCIN 500 MG in IV D5W 250 ML IV ONE (04:30)
[2022-05-27] MEDS ORDERED: CEFTRIAXONE 1GM BAG (ER ONLY) 1 GM/50 ML PIGGYBACK IV ONE (04:30)
--- NOTE | 2022-05-27 04:39 | NUR ---
PT SLEEPING, ATTACHED TO MONITOR, VSS
--- NOTE | 2022-05-27 05:43 | NUR ---
SPOKE TO SABRINA AT [facility] LOOKING FOR BED
--- NOTE | 2022-05-27 05:59 | NUR ---
PT ACCEPTED TO [facility] BY DR ROSS. ROOM 2262. # FOR REPORT [phone].
--- NOTE | 2022-05-27 06:20 | NUR ---
[facility] CALLED FOR BLS GOING TO [facility] ETA - @[phone]
--- NOTE | 2022-05-27 07:07 | NUR ---
GAVE REPORT TO ДМИТРИЙ ESTRADA AT [facility] FOR KRISTA
[2022-05-27 08:40] VITALS: BP 115/76
--- NOTE | 2022-05-27 08:55 | NUR ---
PICKED UP BY TRANSPORT IN STABLE CONDITION
== END 2022-05-27 08:57 | disposition short-term general hospital (02) ==
LOC: ER 00:23
DX: J18.9 Pneumonia, unspecified organism (principal); N39.0 Urinary tract infection, site not specified; F19.10 Other psychoactive substance abuse, uncomplicated; Z20.822 Contact with and (suspected) exposure to COVID-19; D64.9 Anemia, unspecified; E11.65 Type 2 diabetes mellitus with hyperglycemia; Z91.14 Patient's other noncompliance with medication regimen; Z59.01 Sheltered homelessness; J45.909 Unspecified asthma, uncomplicated; Z79.84 Long term (current) use of oral hypoglycemic drugs; I10 Essential (primary) hypertension; Z79.899 Other long term (current) drug therapy; Z86.19 Personal history of other infectious and parasitic diseases; K74.60 Unspecified cirrhosis of liver; R82.5 Elevated urine levels of drugs, medicaments and biological substances
CPT/HCPCS: 99291; 96365; 96361; 96367; 93005; 71045; 70450; 85025; 80048; 87086; 80076; 81001; 36415; 84484 ×2; 85730; 82962; 87426; 80143; 80320; 80307; J7030; J0456; J0696; C9803; G0480; J7060

== ENCOUNTER 2022-07-07 22:41 | Emergency (ER) | payer OTHER ==
[~2022-07-07] VITALS: Ht 162.6 cm; Wt 59.0 kg
--- NOTE | 2022-07-07 23:51 | NUR ---
BS 420
[2022-07-07] MEDS ORDERED: ONDANSETRON HCL/PF 4 MG/2 ML VIAL ONE (23:59)
[2022-07-07] MEDS ORDERED: INSULIN REGULAR, HUMAN 100 UNIT/ML 10 ML VIAL ONE (23:59)
[2022-07-08] MEDS ORDERED: ONDANSETRON HCL/PF 4 MG/2 ML VIAL IVP ONE
[2022-07-08] MEDS ORDERED: INSULIN REGULAR, HUMAN 100 UNIT/ML 10 ML VIAL SQ ONE
[2022-07-08] MEDS ORDERED: IV NS 0.9% 1,000 ML BAG IV ONE
--- NOTE | 2022-07-08 00:42 | NUR ---
BS RECHECK 354
[2022-07-08 00:58] LABS: BASOPHILS # (AUTO) 0.1 K/uL (0.0-0.2); BASOPHILS % (AUTO) 0.8 % (0.0-2.0); EOSINOPHILS % (AUTO) 1.5 % (0.0-6.0); HEMATOCRIT 29 % (39-51); HEMOGLOBIN 8.7 g/dL (13.5-17.5); LYMPHOCYTES # (AUTO) 0.5 K/uL (0.8-4.8); LYMPHOCYTES % (AUTO) 5.8 % (20.0-44.0); MEAN CORPUSCULAR HGB CONC 30 g/dl (31.0-36.0); MEAN CORPUSCULAR VOLUME 74 fL (80-96); MONOCYTES # (AUTO) 0.6 K/uL (0.1-1.30); MONOCYTES % (AUTO) 7.3 % (2.0-12.0); NEUTROPHILS # (AUTO) 7.1 K/uL (1.8-8.9); NEUTROPHILS % (AUTO) 84.6 % (43.0-81.0); PLATELET COUNT (AUTO) 105 K/uL (150-450); RED BLOOD CELL COUNT(AUTO) 3.91 MIL/uL (4.5-6.0); WHITE BLOOD COUNT (AUTO) 8.4 K/uL (4.3-11.0)
[2022-07-08 01:48] LABS: ALBUMIN 2.3 g/dL (3.4-5.0); BILIRUBIN,DIRECT 0.4 mg/dL (0.0-0.2); BILIRUBIN,TOTAL 0.8 mg/dL (0.2-1.0); CALCIUM, SERUM 8.1 mg/dL (8.5-10.1); POTASSIUM 3.5 mmol/L (3.5-5.1); TOTAL PROTEIN, SERUM 7.3 g/dL (6.4-8.2)
--- NOTE | 2022-07-08 01:49 | NUR ---
PER LAB, BG 409
[2022-07-08 02:01] VITALS: BP 131/70
--- NOTE | 2022-07-08 02:01 | NUR ---
Patient discharged to [facility] in stable condition. Written and verbal after care instructions given. Patient verbalizes understanding of instruction.
[2022-07-08 12:57] LABS: BAND % (MANUAL) 4 % (0.0-5.0); BASOPHILS % (MANUAL) 0 % (0.0-2.0); EOSINOPHILS % (MANUAL) 0 % (0-4); LYMPHOCYTES % (MANUAL) 10 % (16-48); MONOCYTES % (MANUAL) 2 % (0-11.0); NEUTROPHILS % (MANUAL) 81 (42-76)
== END 2022-07-08 02:03 ==
LOC: ER 22:47
DX: E11.65 Type 2 diabetes mellitus with hyperglycemia (principal); Z79.84 Long term (current) use of oral hypoglycemic drugs; E86.0 Dehydration; K70.30 Alcoholic cirrhosis of liver without ascites; B19.20 Unspecified viral hepatitis C without hepatic coma; F31.9 Bipolar disorder, unspecified; I85.10 Secondary esophageal varices without bleeding; F41.9 Anxiety disorder, unspecified; Z79.899 Other long term (current) drug therapy; Z20.822 Contact with and (suspected) exposure to COVID-19
CPT/HCPCS: 99284; 96374; 96361; 87426; 36415; 82962 ×3; 96372; 85025; 80048; 82010; 83690; 80076; 85007; J1815; J2405; C9803; J7030